=== PATIENT | male | born 1975 | race Caucasian/White ===

== ENCOUNTER 2016-08-01 02:55 | Emergency (ER) | payer OTHER, BC ==
[2016-08-01] MEDS ORDERED: KETOROLAC 30 MG/ML VIAL (J1885) As Ordered ONE (04:15)
[2016-08-01] MEDS ORDERED: GASTROGRAFIN SOLUTION 30ML (Q9963) As Ordered ONE (04:35)
--- NOTE | 2016-08-01 07:10 | REPUSA ---
CLINICAL HISTORY: Abdominal pain. TECHNIQUE: Multiple axial, sagittal and coronal CT images were obtained through the abdomen and pelvi s without administration of IV contrast material. Patient ingested oral contrast. COMMENTS: The liver is mildly enlarged with decreased attenuation without mass or defect. There is no intra or extrahepatic biliary ductal dilatation. The spleen is normal. The gallbladder is within normal limits . The pancreas is of normal contour and attenuation characteristics. There is no evidence of adrenal mass. The kidneys are normal in size, shape and configuration. No renal or ureteral calculi are identified. There is no hydroureter or hydronephrosis. There is no evidence for appendicitis. There is no bowel wall thickening. No evidence for small or la rge bowel obstruction. There is no evidence of abdominal ascites or lymphadenopathy. There is no evidence of intrinsic or extrinsic bladder mass. Small fat-containing left inguinal hernia without incarceration. Mildly enlarged left external iliac/ inguinal lymph nodes the largest measuring 1.2 cm. Surgical changes of the left inguinal canal. Images of the lung bases show no evidence of pleural or parenchymal mass. There are no pleural effusi ons. The bony structures are free of lytic or blastic lesions. IMPRESSION: Surgical changes of the left inguinal canal. Small fat containing left inguinal hernia without incarceration. Mildly enlarged left external iliac/left inguinal lymph nodes. Thank you for your kind referral of this patient.
--- NOTE | 2016-08-01 07:30 | EDDOCDS ---
Nurse's Notes [facility] Name: Víctor Brasher Age: 40 yrs Sex: Male : 1975 Arrival Date: 08/01/2016 Time: 02:55 Bed 7 Private MD: Diagnosis: Inguinal hernia-left Presentation: 08/01 02:59 Presenting complaint: Patient states: While boosting patient in bed, felt pulling and jmb burning in right inguinal area. Risk factors: the patient reports not having a history of previous torsion. Adult Sepsis Screening: The patient does not have new or worsening altered mentation. Patient's respiratory rate is less than 22. Systolic blood pressure is greater than 100. Patient has a qSOFA score of 0- Negative Sepsis Screen. Suicide/Homicide risk assessment- the patient denies having any suicidal and/or homicidal ideations and does not present with any other emotional, behavioral or mental health complaints. Status: Patient is not a line service technician or dependent. Transition of care: patient was not received from another setting of care. 02:59 Acuity: ELI Level 3 b 02:59 Method Of Arrival: Walkin/Carried/Asstd jmb Triage Assessment: 03:02 General: Appears in no apparent distress, Behavior is appropriate for age, cooperative. b Pain: Location: pelvis Pain currently is 5 out of 10 on a pain scale. Pt Declines HIV testing. Neurological: Level of Consciousness is awake, alert, obeys commands, Oriented to person, place, time, Speech is normal. Respiratory: Airway is patent Respiratory effort is even, Respiratory pattern is regular. GI: Abdomen is non- distended. Derm: Skin is pink, warm & dry. Musculoskeletal: Range of motion intact in all extremities. Historical: - Home Meds: 1. olmesartan-hydrochlorothiazide 20-12.5 mg oral tab 1 tab once daily 2. Zyrtec 5 mg Oral chew 1 tab once daily 3. fortesta 40 unit daily - PMHx: Seasonal Allergies; Hypertension; - PSHx: Hernia repair; Tonsillectomy; Adenoidectomy; Appendectomy; - Social history: Smoking status: Patient states was never smoker of tobacco. No barriers to communication noted, The patient speaks fluent Maori, Speaks appropriately for age. - Family history: Not pertinent. - : The pt / caregiver states he / she is not on anticoagulants. Home medication list is obtained from the patient. - Exposure Risk Screening:: None identified. Screenin:16 Screening information is obtained from the patient. Fall risk: No risks identified. ck1 Assistance ADL's: requires no assistance with activities of daily living. Abuse/DV Screen: The patient / caregiver reports he/she is: not in a situation that causes fear, pain or injury. Nutritional screening: No deficits noted. Advance Directives: Currently, there is no health care proxy. home support is adequate. Assessment: 03:18 General: Appears in no apparent distress, comfortable, Behavior is appropriate for age, nn1 cooperative. General: Patient reports history of bilateral inguinal hernias. 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 Pain: Location: left femoral area, left inguinal area and left iliac crest Pain currently is 5 out of 10 on a pain scale. Quality of pain is described as pressure, Pain began 1930. Neurological: Level of Consciousness is awake, alert, obeys commands, Oriented to person, place, time. Cardiovascular: Capillary refill < 3 seconds. Respiratory: Airway is patent Respiratory effort is even, unlabored, Respiratory pattern is regular, symmetrical. GI: Abdomen is flat, non- distended Bowel sounds present X 4 quads. Abd is soft X 4 quads Abd is tender to palpation X 4 quads. Patient reports pressure diffusely around abdomen. Derm: Skin is pink, warm & dry. 04:43 Reassessment: Patient appears in no apparent distress at this time. General: Patient nn1 has fluids infusing per orders, patient drinking oral contrast at this time. . 05:37 General: Patient finished contrast, no complaints at this time.. Respiratory: Airway is nn1 patent Respiratory effort is even, unlabored, Respiratory pattern is regular, symmetrical. Derm: Skin is pink, warm & dry. 06:21 General: Patient to CT, patients gait is steady. In no distress at this time. . nn1 Neurological: Level of Consciousness is awake, alert, obeys commands. Derm: Skin is pink, warm & dry. 07:20 General: Appears in no apparent distress, comfortable, Behavior is appropriate for age, ck1 cooperative. Pain: Location: left inguinal area Pain currently is 6 out of 10 on a pain scale. Neurological: Level of Consciousness is awake, alert, obeys commands, Oriented to person, place, time. Respiratory: Respiratory effort is unlabored, Respiratory pattern is regular, symmetrical. GI: No deficits noted. Derm: Skin is pink, warm & dry. Vital Signs: 03:02 BP 150 / 87; Pulse 80; Resp 18; Temp 98.2(O); Pulse Ox 96% on R/A; Weight 100.7 kg (R); b Height 5 ft. 10 in. (177.80 cm) (R); Pain 5/10; 07:22 BP 123 / 81; Pulse 73; Resp 18; Temp 98.7(TE); Pulse Ox 94% on R/A; Pain 6/10; ck1 03:02 Body Mass Index 31.85 (100.70 kg, 177.80 cm) [facility] Vitals: 03:02 Log In Time: August 01, 2016 at 02:58. [facility] ED Course: 02:57 Patient visited by Delores Benítez Reg. hs2 02:57 Patient moved to Waiting hs2 03:00 Triage Initiated [facility] 03:07 Patient moved to [facility] 03:56 Robert Starr DO is Attending Physician. cs11 03:56 Patient visited by Robert Starr DO. cs11 04:39 [facility] Payment Agreement was scanned into [employer] and attached to record. pm4 04:42 Patient visited by Lula Terry RN. nn1 05:38 Patient visited by Lula Terry RN. nn1 06:24 Patient visited by Lula Terry RN. nn1 06:57 Sophia Godinez,RN is Primary Nurse. ck1 06:59 Attending Physician role handed off by Robert Starr DO sd1 06:59 Stephanie Carcamo MD is Attending Physician. sd1 07:15 Patient visited by Sophia Godinez,JEFFERSON. ck1 07:16 The patient / caregiver is instructed regarding the plan of care and ED course. ck1 07:20 Maintain field IV. Dressing intact. Site clean & dry. Gauge & site: 20 gauge in left ck1 hand. 07:22 No procedures done that require assistance. ck1 07:26 CT ABD & PELVIS: Oral Contrast Only Returned. EDMS 07:26 Discontinued lock intact, bleeding controlled, pressure dressing applied, No ck1 redness/swelling at site. Administered Medications: 04:25 Drug: NS 0.9% 1000 ml [sodium chloride 0.9 % intravenous solution] Route: IV; Rate: nn1 bolus; Site: left hand; 04:25 Drug: ketorolac 30 mg [ketorolac 30 mg/mL (1 mL) injection solution (1 mL)] Route: IVP; nn1 Site: left hand; 05:37 Drug: Diatrizoate Meglumine & Sodium 10 ml [diatrizoate meglumine and diat.sodium 66 nn1 %-10 % oral solution (10 mL)] Route: PO; Order Results: Radiology Order: CT ABD & PELVIS: Oral Contrast Only Test: CT ABD & PELVIS: Oral Contrast Only REASON FOR EXAMINATION: L inguinal incacerate hernia eval; ; CLINICAL HISTORY: Abdominal pain.; TECHNIQUE: Multiple axial, sagittal and coronal CT images were obtained through the abdomen and pelvi; s without administration of IV contrast material. Patient ingested oral contrast.; COMMENTS:; The liver is mildly enlarged with decreased attenuation without mass or defect. There is no intra or; extrahepatic biliary ductal dilatation. The spleen is normal. The gallbladder is within normal limits; . The pancreas is of normal contour and attenuation characteristics. There is no evidence of adrenal; mass.; The kidneys are normal in size, shape and configuration. No renal or ureteral calculi are identified.; There is no hydroureter or hydronephrosis.; There is no evidence for appendicitis. There is no bowel wall thickening. No evidence for small or la; rge bowel obstruction. There is no evidence of abdominal ascites or lymphadenopathy.; There is no evidence of intrinsic or extrinsic bladder mass.; Small fat-containing left inguinal hernia without incarceration. Mildly enlarged left external iliac/; inguinal lymph nodes the largest measuring 1.2 cm. Surgical changes of the left inguinal canal.; Images of the lung bases show no evidence of pleural or parenchymal mass. There are no pleural effusi; ons.; The bony structures are free of lytic or blastic lesions.; IMPRESSION:; Surgical changes of the left inguinal canal.; Small fat containing left inguinal hernia without incarceration.; Mildly enlarged left external iliac/left inguinal lymph nodes.; Thank you for your kind referral of this patient.; ; Outcome: 07:21 Discharge ordered by Provider. sd1 07:22 CT Study completed. ck1 07:27 Discharge Assessment: Patient awake, alert and oriented x 3. No cognitive and/or ck1 functional deficits noted. Patient verbalized understanding of disposition instructions. patient administered narcotics - no. The following High Risk Discharge criteria are identified: None. Discharged to home ambulatory. Condition: stable. Property :Personal belongings accompany Pt. 07:29 Discharge instructions given to patient, Instructed on discharge instructions, follow ck1 up and referral plans. medication usage, Demonstrated understanding of instructions, medications, Pt was receptive of discharge instructions/ teaching. Work note provided to patient. 07:29 Patient left the ED. ck1 Signatures: Dispatcher [employer] EDMS Stephanie Carcamo MD MD sd1 Sophia GodinezRN RN ck1 Robert Starr, DO cs11 Avila HandRN RN Lula Mcclain RN RN nn1 Delores Benítez, Reg Reg hs2 Christian Harrell, Reg Reg pm4 MANA
--- NOTE | 2016-08-01 07:30 | EDDOCDS ---
Physician Documentation [facility] Name: Víctor Brasher Age: 40 yrs Sex: Male : 1975 Arrival Date: 08/01/2016 Time: 02:55 Bed 7 Private MD: Disposition: 08/01/16 07:21 Discharged to Home/Self Care. Impression: Inguinal hernia - left. - Condition is Stable. - Discharge Instructions: Hernia, Hernia, [id number]. - Medication Reconciliation, Local Pharmacy Hours, Work Release Form - 1 day form. - Follow up: Private Physician; When: Dr. Colin - call to schedule appointment. - Problem is new. - Symptoms have improved. - Notes: scrotal support return for increased pain, hard firm mass, vomiting, worsening symptoms or other concerns Historical: - Home Meds: 1. olmesartan-hydrochlorothiazide 20-12.5 mg oral tab 1 tab once daily 2. Zyrtec 5 mg Oral chew 1 tab once daily 3. fortesta 40 unit daily - PMHx: Seasonal Allergies; Hypertension; - PSHx: Hernia repair; Tonsillectomy; Adenoidectomy; Appendectomy; - Social history: Smoking status: Patient states was never smoker of tobacco. No barriers to communication noted, The patient speaks fluent [place], Speaks appropriately for age. - Family history: Not pertinent. - : The pt / caregiver states he / she is not on anticoagulants. Home medication list is obtained from the patient. - Exposure Risk Screening:: None identified. Vital Signs: 08/01 03:02 BP 150 / 87; Pulse 80; Resp 18; Temp 98.2(O); Pulse Ox 96% on R/A; Weight 100.7 kg / jmb 222.01 lbs (R); Height 5 ft. 10 in. (177.80 cm) (R); Pain 5/10; 07:22 BP 123 / 81; Pulse 73; Resp 18; Temp 98.7(TE); Pulse Ox 94% on R/A; Pain 6/10; ck1 03:02 Body Mass Index 31.85 (100.70 kg, 177.80 cm) jmb MDM: 04:12 IV Saline Lock ordered. cs11 04:12 NS 0.9% 1000 ml IV at bolus once ordered. cs11 04:12 ketorolac 30 mg IVP once ordered. cs11 04:12 CT ABD & PELVIS: Oral Contrast Only Ordered. EDMS 04:17 Financial registration complete. pm4 04:39 [facility] Payment Agreement was scanned into [employer] and attached to record. pm4 04:42 Diatrizoate Meglumine & Sodium Liquid 10 ml PO once; mix in 290cc of water; 1st cup \T\ nn1 0445, 2nd cup \T\ 0515 ordered. Administered Medications: 04:25 Drug: NS 0.9% 1000 ml [sodium chloride 0.9 % intravenous solution] Route: IV; Rate: nn1 bolus; Site: left hand; 04:25 Drug: ketorolac 30 mg [ketorolac 30 mg/mL (1 mL) injection solution (1 mL)] Route: IVP; nn1 Site: left hand; 05:37 Drug: Diatrizoate Meglumine & Sodium 10 ml [diatrizoate meglumine and diat.sodium 66 nn1 %-10 % oral solution (10 mL)] Route: PO; Signatures: Dispatcher [employer] EDRI Stephanie Carcamo MD MD sd1 Sophia GodinezRN RN ck1 Robert Starr, DO cs11 Avila HandRN RN Lula McclainRN RN nn1 Christian Harrell, Reg Reg pm4 The chart was reviewed and I authenticate all verbal orders and agree with the evaluation and treatment provided.Attachments: 04:39 [facility] Payment Agreement pm4 MTDD
--- NOTE | 2016-08-03 08:31 | EDDOCDS ---
Physician Documentation [facility] Name: Víctor Brasher Age: 40 yrs Sex: Male : 1975 Arrival Date: 08/01/2016 Time: 02:55 Bed 7 Private MD: Disposition: 08/01/16 07:21 Discharged to Home/Self Care. Impression: Inguinal hernia - left. - Condition is Stable. - Discharge Instructions: Hernia, Hernia, [id number]. - Medication Reconciliation, Local Pharmacy Hours, Work Release Form - 1 day form. - Follow up: Private Physician; When: Dr. Colin - call to schedule appointment. - Problem is new. - Symptoms have improved. - Notes: scrotal support return for increased pain, hard firm mass, vomiting, worsening symptoms or other concerns Historical: - Home Meds: 1. olmesartan-hydrochlorothiazide 20-12.5 mg oral tab 1 tab once daily 2. Zyrtec 5 mg Oral chew 1 tab once daily 3. fortesta 40 unit daily - PMHx: Seasonal Allergies; Hypertension; - PSHx: Hernia repair; Tonsillectomy; Adenoidectomy; Appendectomy; - Social history: Smoking status: Patient states was never smoker of tobacco. No barriers to communication noted, The patient speaks fluent Cameroonian, Speaks appropriately for age. - Family history: Not pertinent. - : The pt / caregiver states he / she is not on anticoagulants. Home medication list is obtained from the patient. - Exposure Risk Screening:: None identified. Vital Signs: 08/01 03:02 BP 150 / 87; Pulse 80; Resp 18; Temp 98.2(O); Pulse Ox 96% on R/A; Weight 100.7 kg / jmb 222.01 lbs (R); Height 5 ft. 10 in. (177.80 cm) (R); Pain 5/10; 07:22 BP 123 / 81; Pulse 73; Resp 18; Temp 98.7(TE); Pulse Ox 94% on R/A; Pain 6/10; ck1 03:02 Body Mass Index 31.85 (100.70 kg, 177.80 cm) jmb MDM: 04:12 IV Saline Lock ordered. cs11 04:12 NS 0.9% 1000 ml IV at bolus once ordered. cs11 04:12 ketorolac 30 mg IVP once ordered. cs11 04:12 CT ABD & PELVIS: Oral Contrast Only Ordered. EDMS 04:17 Financial registration complete. pm4 04:39 [facility] [place] [facility] Payment Agreement was scanned into [employer] and attached to record. pm4 04:42 Diatrizoate Meglumine & Sodium Liquid 10 ml PO once; mix in 290cc of water; 1st cup \T\ nn1 0445, 2nd cup \T\ 0515 ordered. 07:39 T-Sheet-- Draft Copy was scanned into [employer] and attached to record. [facility] 10:17 Radiology Report was scanned into [employer] and attached to record. gb Administered Medications: 04:25 Drug: NS 0.9% 1000 ml [sodium chloride 0.9 % intravenous solution] Route: IV; Rate: nn1 bolus; Site: left hand; 04:25 Drug: ketorolac 30 mg [ketorolac 30 mg/mL (1 mL) injection solution (1 mL)] Route: IVP; nn1 Site: left hand; 05:37 Drug: Diatrizoate Meglumine & Sodium 10 ml [diatrizoate meglumine and diat.sodium 66 nn1 %-10 % oral solution (10 mL)] Route: PO; Signatures: Dispatcher [employer] EDMO Stephanie Carcamo MD MD sd1 Candy Brown, Reg Reg gb Sophia Godinez,RN RN ck1 Robert Starr, DO cs11 Avila HandRN RN Lula McclainRN RN nn1 Stephanie Santizo [facility] Christian Harrell, Reg Reg pm4 The chart was reviewed and I authenticate all verbal orders and agree with the evaluation and treatment provided.Attachments: 04:39 [facility] [facility] Payment Agreement pm4 07:39 T-Sheet-- Draft Copy [facility] Chart Complete MTDD
--- NOTE | 2016-08-03 08:31 | EDDOCDS ---
Physician Documentation [facility] Name: Víctor Brasher Age: 40 yrs Sex: Male : 1975 Arrival Date: 08/01/2016 Time: 02:55 Bed 7 Private MD: Disposition: 08/01/16 07:21 Discharged to Home/Self Care. Impression: Inguinal hernia - left. - Condition is Stable. - Discharge Instructions: Hernia, Hernia, [id number]. - Medication Reconciliation, Local Pharmacy Hours, Work Release Form - 1 day form. - Follow up: Private Physician; When: Dr. Colin - call to schedule appointment. - Problem is new. - Symptoms have improved. - Notes: scrotal support return for increased pain, hard firm mass, vomiting, worsening symptoms or other concerns Historical: - Home Meds: 1. olmesartan-hydrochlorothiazide 20-12.5 mg oral tab 1 tab once daily 2. Zyrtec 5 mg Oral chew 1 tab once daily 3. fortesta 40 unit daily - PMHx: Seasonal Allergies; Hypertension; - PSHx: Hernia repair; Tonsillectomy; Adenoidectomy; Appendectomy; - Social history: Smoking status: Patient states was never smoker of tobacco. No barriers to communication noted, The patient speaks fluent Indian, Speaks appropriately for age. - Family history: Not pertinent. - : The pt / caregiver states he / she is not on anticoagulants. Home medication list is obtained from the patient. - Exposure Risk Screening:: None identified. Vital Signs: 08/01 03:02 BP 150 / 87; Pulse 80; Resp 18; Temp 98.2(O); Pulse Ox 96% on R/A; Weight 100.7 kg / jmb 222.01 lbs (R); Height 5 ft. 10 in. (177.80 cm) (R); Pain 5/10; 07:22 BP 123 / 81; Pulse 73; Resp 18; Temp 98.7(TE); Pulse Ox 94% on R/A; Pain 6/10; ck1 03:02 Body Mass Index 31.85 (100.70 kg, 177.80 cm) jmb MDM: 04:12 IV Saline Lock ordered. cs11 04:12 NS 0.9% 1000 ml IV at bolus once ordered. cs11 04:12 ketorolac 30 mg IVP once ordered. cs11 04:12 CT ABD & PELVIS: Oral Contrast Only Ordered. EDMS 04:17 Financial registration complete. pm4 04:39 [facility] [place] Agreement was scanned into [employer] and attached to record. pm4 04:42 Diatrizoate Meglumine & Sodium Liquid 10 ml PO once; mix in 290cc of water; 1st cup \T\ nn1 0445, 2nd cup \T\ 0515 ordered. 07:39 T-Sheet-- Draft Copy was scanned into [employer] and attached to record. [facility] 10:17 Radiology Report was scanned into [employer] and attached to record. gb Administered Medications: 04:25 Drug: NS 0.9% 1000 ml [sodium chloride 0.9 % intravenous solution] Route: IV; Rate: nn1 bolus; Site: left hand; 04:25 Drug: ketorolac 30 mg [ketorolac 30 mg/mL (1 mL) injection solution (1 mL)] Route: IVP; nn1 Site: left hand; 05:37 Drug: Diatrizoate Meglumine & Sodium 10 ml [diatrizoate meglumine and diat.sodium 66 nn1 %-10 % oral solution (10 mL)] Route: PO; Signatures: Dispatcher [employer] EDME Stephanie Carcamo MD MD sd1 Candy Brown, Reg Reg gb Sophia Godinez,RN RN ck1 Robert Starr, DO cs11 Avila HandRN RN Lula McclainRN RN nn1 Stephanie Santizo [facility] Christian Harrell, Reg Reg pm4 The chart was reviewed and I authenticate all verbal orders and agree with the evaluation and treatment provided.Attachments: 04:39 [facility] [place] Agreement pm4 07:39 T-Sheet-- Draft Copy [facility] Chart Complete MTDD
--- NOTE | 2016-08-03 08:31 | EDDOCDS ---
Nurse's Notes [facility] Name: Víctor Brasher Age: 40 yrs Sex: Male : 1975 Arrival Date: 08/01/2016 Time: 02:55 Bed 7 Private MD: Diagnosis: Inguinal hernia-left Presentation: 08/01 02:59 Presenting complaint: Patient states: While boosting patient in bed, felt pulling and jmb burning in right inguinal area. Risk factors: the patient reports not having a history of previous torsion. Adult Sepsis Screening: The patient does not have new or worsening altered mentation. Patient's respiratory rate is less than 22. Systolic blood pressure is greater than 100. Patient has a qSOFA score of 0- Negative Sepsis Screen. Suicide/Homicide risk assessment- the patient denies having any suicidal and/or homicidal ideations and does not present with any other emotional, behavioral or mental health complaints. 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 Transition of care: patient was not received from another setting of care. 02:59 Acuity: ELI Level 3 b 02:59 Method Of Arrival: Walkin/Carried/Asstd jmb Triage Assessment: 03:02 General: Appears in no apparent distress, Behavior is appropriate for age, cooperative. b Pain: Location: pelvis Pain currently is 5 out of 10 on a pain scale. Pt Declines HIV testing. Neurological: Level of Consciousness is awake, alert, obeys commands, Oriented to person, place, time, Speech is normal. Respiratory: Airway is patent Respiratory effort is even, Respiratory pattern is regular. GI: Abdomen is non- distended. Derm: Skin is pink, warm & dry. Musculoskeletal: Range of motion intact in all extremities. Historical: - Home Meds: 1. olmesartan-hydrochlorothiazide 20-12.5 mg oral tab 1 tab once daily 2. Zyrtec 5 mg Oral chew 1 tab once daily 3. fortesta 40 unit daily - PMHx: Seasonal Allergies; Hypertension; - PSHx: Hernia repair; Tonsillectomy; Adenoidectomy; Appendectomy; - Social history: Smoking status: Patient states was never smoker of tobacco. No barriers to communication noted, The patient speaks fluent Yi, Speaks appropriately for age. - Family history: Not pertinent. - : The pt / caregiver states he / she is not on anticoagulants. Home medication list is obtained from the patient. - Exposure Risk Screening:: None identified. Screenin:16 Screening information is obtained from the patient. Fall risk: No risks identified. ck1 Assistance ADL's: requires no assistance with activities of daily living. Abuse/DV Screen: The patient / caregiver reports he/she is: not in a situation that causes fear, pain or injury. Nutritional screening: No deficits noted. Advance Directives: Currently, there is no health care proxy. home support is adequate. Assessment: 03:18 General: Appears in no apparent distress, comfortable, Behavior is appropriate for age, nn1 cooperative. General: Patient reports history of bilateral inguinal hernias. 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 Pain: Location: left femoral area, left inguinal area and left iliac crest Pain currently is 5 out of 10 on a pain scale. Quality of pain is described as pressure, Pain began 1930. Neurological: Level of Consciousness is awake, alert, obeys commands, Oriented to person, place, time. Cardiovascular: Capillary refill < 3 seconds. Respiratory: Airway is patent Respiratory effort is even, unlabored, Respiratory pattern is regular, symmetrical. GI: Abdomen is flat, non- distended Bowel sounds present X 4 quads. Abd is soft X 4 quads Abd is tender to palpation X 4 quads. Patient reports pressure diffusely around abdomen. Derm: Skin is pink, warm & dry. 04:43 Reassessment: Patient appears in no apparent distress at this time. General: Patient nn1 has fluids infusing per orders, patient drinking oral contrast at this time. . 05:37 General: Patient finished contrast, no complaints at this time.. Respiratory: Airway is nn1 patent Respiratory effort is even, unlabored, Respiratory pattern is regular, symmetrical. Derm: Skin is pink, warm & dry. 06:21 General: Patient to CT, patients gait is steady. In no distress at this time. . nn1 Neurological: Level of Consciousness is awake, alert, obeys commands. Derm: Skin is pink, warm & dry. 07:20 General: Appears in no apparent distress, comfortable, Behavior is appropriate for age, ck1 cooperative. Pain: Location: left inguinal area Pain currently is 6 out of 10 on a pain scale. Neurological: Level of Consciousness is awake, alert, obeys commands, Oriented to person, place, time. Respiratory: Respiratory effort is unlabored, Respiratory pattern is regular, symmetrical. GI: No deficits noted. Derm: Skin is pink, warm & dry. Vital Signs: 03:02 BP 150 / 87; Pulse 80; Resp 18; Temp 98.2(O); Pulse Ox 96% on R/A; Weight 100.7 kg (R); b Height 5 ft. 10 in. (177.80 cm) (R); Pain 5/10; 07:22 BP 123 / 81; Pulse 73; Resp 18; Temp 98.7(TE); Pulse Ox 94% on R/A; Pain 6/10; ck1 03:02 Body Mass Index 31.85 (100.70 kg, 177.80 cm) [facility] Vitals: 03:02 Log In Time: August 01, 2016 at 02:58. [facility] ED Course: 02:57 Patient visited by Delores Benítez Reg. hs2 02:57 Patient moved to Waiting hs2 03:00 Triage Initiated [facility] 03:07 Patient moved to [facility] 03:56 Robert Starr DO is Attending Physician. cs11 03:56 Patient visited by Robert Starr DO. cs11 04:39 [facility] Payment Agreement was scanned into [employer] and attached to record. pm4 04:42 Patient visited by Lula Terry RN. nn1 05:38 Patient visited by Lula Terry RN. nn1 06:24 Patient visited by Lula Terry RN. nn1 06:57 Sophia Godinez,RN is Primary Nurse. ck1 06:59 Attending Physician role handed off by Robert Starr DO sd1 06:59 Stephanie Carcamo MD is Attending Physician. sd1 07:15 Patient visited by Sophia Godinez,JEFFERSON. ck1 07:16 The patient / caregiver is instructed regarding the plan of care and ED course. ck1 07:20 Maintain field IV. Dressing intact. Site clean & dry. Gauge & site: 20 gauge in left ck1 hand. 07:22 No procedures done that require assistance. ck1 07:26 CT ABD & PELVIS: Oral Contrast Only Returned. EDMS 07:26 Discontinued lock intact, bleeding controlled, pressure dressing applied, No ck1 redness/swelling at site. 07:39 T-Sheet-- Draft Copy was scanned into [employer] and attached to record. [facility] 10:17 Radiology Report was scanned into [employer] and attached to record. gb Administered Medications: 04:25 Drug: NS 0.9% 1000 ml [sodium chloride 0.9 % intravenous solution] Route: IV; Rate: nn1 bolus; Site: left hand; 04:25 Drug: ketorolac 30 mg [ketorolac 30 mg/mL (1 mL) injection solution (1 mL)] Route: IVP; nn1 Site: left hand; 05:37 Drug: Diatrizoate Meglumine & Sodium 10 ml [diatrizoate meglumine and diat.sodium 66 nn1 %-10 % oral solution (10 mL)] Route: PO; Order Results: Radiology Order: CT ABD & PELVIS: Oral Contrast Only Test: CT ABD & PELVIS: Oral Contrast Only REASON FOR EXAMINATION: L inguinal incacerate hernia eval; ; CLINICAL HISTORY: Abdominal pain.; TECHNIQUE: Multiple axial, sagittal and coronal CT images were obtained through the abdomen and pelvi; s without administration of IV contrast material. Patient ingested oral contrast.; COMMENTS:; The liver is mildly enlarged with decreased attenuation without mass or defect. There is no intra or; extrahepatic biliary ductal dilatation. The spleen is normal. The gallbladder is within normal limits; . The pancreas is of normal contour and attenuation characteristics. There is no evidence of adrenal; mass.; The kidneys are normal in size, shape and configuration. No renal or ureteral calculi are identified.; There is no hydroureter or hydronephrosis.; There is no evidence for appendicitis. There is no bowel wall thickening. No evidence for small or la; rge bowel obstruction. There is no evidence of abdominal ascites or lymphadenopathy.; There is no evidence of intrinsic or extrinsic bladder mass.; Small fat-containing left inguinal hernia without incarceration. Mildly enlarged left external iliac/; inguinal lymph nodes the largest measuring 1.2 cm. Surgical changes of the left inguinal canal.; Images of the lung bases show no evidence of pleural or parenchymal mass. There are no pleural effusi; ons.; The bony structures are free of lytic or blastic lesions.; IMPRESSION:; Surgical changes of the left inguinal canal.; Small fat containing left inguinal hernia without incarceration.; Mildly enlarged left external iliac/left inguinal lymph nodes.; Thank you for your kind referral of this patient.; ; Outcome: 07:21 Discharge ordered by Provider. sd1 07:22 CT Study completed. ck1 07:27 Discharge Assessment: Patient awake, alert and oriented x 3. No cognitive and/or ck1 functional deficits noted. Patient verbalized understanding of disposition instructions. patient administered narcotics - no. The following High Risk Discharge criteria are identified: None. Discharged to home ambulatory. Condition: stable. Property :Personal belongings accompany Pt. 07:29 Discharge instructions given to patient, Instructed on discharge instructions, follow ck1 up and referral plans. medication usage, Demonstrated understanding of instructions, medications, Pt was receptive of discharge instructions/ teaching. Work note provided to patient. 07:29 Patient left the ED. ck1 Signatures: Dispatcher [employer] EDMS Stephanie Carcamo MD MD sd1 Candy Brown, Reg Reg gb Sophia GodinezRN RN ck1 Robert Starr, DO cs11 Avila HandRN RN Lula McclainRN RN nn1 Delores Benítez, Reg Reg hs2 Stephanie Santizo Paul, Reg Reg pm4 Chart Complete MTDD
== END 2016-08-01 07:29 | disposition home or self-care (01) ==
LOC: M ED 02:55
DX: K40.90 Unilateral inguinal hernia, without obstruction or gangrene, not specified as recurrent (principal); R10.30 Lower abdominal pain, unspecified; I10 Essential (primary) hypertension; J30.9 Allergic rhinitis, unspecified; Z90.89 Acquired absence of other organs; Z79.899 Other long term (current) drug therapy
CPT/HCPCS: 74176; 96374; 99284; J1885; Q9963

== ENCOUNTER 2016-08-04 10:08 | Emergency (ER) | payer BC, OTHER ==
--- NOTE | 2016-08-04 11:24 | REP ---
BILATERAL INGUINAL SOFT-TISSUE ULTRASOUND: HISTORY: Bilateral inguinal pain. Question hernia. Painful pop sensation. FINDINGS: Bilateral inguinal canal sonography is performed. No abnormalities noted on the right. On the left the inguinal canal appears dilated with Valsalva to 5 mm transmitting a small amount of intra-abdominal fat with Valsalva. Reduces with rest. No abnormal fluid collection is seen. IMPRESSION: Findings consistent with a small left inguinal hernia transmitting abdominal fat. Correlation with clinical exam suggested. Signed by Edgar Eugene MD 08/04/2016 02:32 P
[2016-08-04 11:45] LABS: BASO # 0.1 K/mm3 (0.0-0.2); BASO % 1.5 % (0.0-1.0); EOS # 0.2 K/mm3 (0.0-0.50); EOS % 2.4 % (0.0-3.0); LARGE UNSTAINED CELL # 0.2 K/mm3 (0.0-0.4); LARGE UNSTAINED CELL % 2.1 % (0.0-4.0); LYMPH % 25.6 % (24.0-44.0); MEAN CORPUSCULAR HEMOGLOBIN 31.9 pg (27.0-33.0); MEAN CORPUSCULAR VOLUME 93.8 fl (80.0-96.0); MONO # 0.5 K/mm3 (0.0-0.8); MONO % 7.2 % (0.0-5.0); NEUTROPHILS # 4.3 K/mm3 (1.8-7.7); NEUTROPHILS % 61.3 % (36.0-66.0); PLATELET COUNT, AUTOMATED 249 k/mm3 (150-450); RED CELL DISTRIBUTION WIDTH 12.8 % (11.5-14.5); WHITE BLOOD COUNT 7.1 K/mm3 (4.0-10.0)
--- NOTE | 2016-08-04 12:52 | EDDOCDS ---
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 seen here had ct and us and dx with hernia. diarrhea for past few days and now firming up. patter more frequently. pt got in touch with surgeon and cant see until next week. pain is persisting. Risk factors: the patient reports not having a history of previous torsion. Adult Sepsis Screening: The patient does not have new or worsening altered mentation. Patient's respiratory rate is less than 22. Systolic blood pressure is greater than 100. Patient has a qSOFA score of 0- Negative Sepsis Screen. Suicide/Homicide risk assessment- the patient denies having any suicidal and/or homicidal ideations and does not present with any other emotional, behavioral or mental health complaints. 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 Transition of care: patient was not received from another setting of care. 10:19 Acuity: ELI Level 3 srm 10:19 Method Of Arrival: Walkin/Carried/Asstd srm 10:22 Presenting complaint: Patient states: felt a bulge in right groin area. srm Triage Assessment: 10:22 General: Appears in no apparent distress, Behavior is appropriate for age, cooperative. srm Pain: Pain currently is 4 out of 10 on a pain scale. At worst was 6 out of 10 on a pain scale. HIV screening NA for this visit Offered previously. GI: Reports abdominal and groin pain. Historical: - Allergies: no known allergies; - Home Meds: 1. olmesartan-hydrochlorothiazide 20-12.5 mg oral tab 1 tab once daily 2. fortesta 40 unit daily 3. Motrin 600 mg Oral tab 1 tab as needed (Last dose: 08/04/2016 04:00) 4. Zyrtec 10 mg oral cap daily - PMHx: Seasonal Allergies; Hypertension; - PSHx: Hernia repair; Tonsillectomy; Adenoidectomy; Appendectomy; - Social history: Smoking status: Patient states was never smoker of tobacco. No barriers to communication noted, The patient speaks fluent Maltese, Speaks appropriately for age. - Family history: No immediate family members are acutely ill. - : The pt / caregiver states he / she is not on anticoagulants. Home medication list is obtained from the patient. - Exposure Risk Screening:: None identified. Screenin:48 Screening information is obtained from the patient. Fall risk: No risks identified. mb9 Assistance ADL's: requires no assistance with activities of daily living. Abuse/DV Screen: The patient / caregiver reports he/she is: not in a situation that causes fear, pain or injury. Nutritional screening: No deficits noted. Advance Directives: There is no active DNR order. home support is adequate. Assessment: 12:48 General: Appears in no apparent distress, Behavior is appropriate for age, cooperative. mb9 Respiratory: Airway is patent Respiratory effort is even, unlabored. GI: Abdomen is flat, non- distended Reports diarrhea. Vital Signs: 10:10 BP 137 / 86; Pulse 91; Resp 16; Temp 97.9(O); Pulse Ox 96% ; Weight 100.7 kg; Height 5 cmb ft. 10 in. (177.80 cm); Pain 6/10; 12:20 BP 130 / 79; Pulse 75; Resp 18; Temp 98.4(TE); Pulse Ox 97% on R/A; Pain 6/10; mdr 10:10 Body Mass Index 31.85 (100.70 kg, 177.80 cm) cmb Vitals: 10:10 Log In Time: August 04, 2016 at 10:08. cmb ED Course: 10:09 Patient visited by Inés Edwards. cmb 10:09 Kiki Anne is Private Physician. cmb 10:09 Patient moved to Waiting cmb 10:11 Patient moved to Pre RCE cmb 10:21 Triage Initiated srm 10:23 Patient moved to Triage 3 srm 10:24 [facility] ar2 10:24 David Banks MD is Attending Physician. ar2 10:27 Patient visited by Dwight Grey PA-C. ar2 10:45 Patient moved to PR1 / 25 srm 10:45 Patient moved to Ultrasound srm 11:23 Lactic Acid (Oliveira tube on ice) Sent. mdr 11:23 CBC with Diff Sent. mdr 11:27 Patient name changed from Víctor\S\A\S\Brasher\S\ to Víctor\S\Emery\S\Brasher. EDMS 11:28 [facility] Payment Agreement was scanned into [employer] and attached to record. lg 11:30 Patient moved to PR1 / 25 mb9 11:34 Patient moved to TR1 mdr 11:45 ABD US: Limited Returned. EDMS 12:00 Patient moved to PR1 / 25 mdr 12:21 Patient visited by Jas Hernández PCA. mdr 12:36 Patient moved to TR8 mb9 12:42 T-Sheet-- Draft Copy was scanned into [employer] and attached to record. gb 12:48 The patient / caregiver is instructed regarding the plan of care and ED course. mb9 12:48 No IV's were initiated during this patient's visit. No procedures done that require mb9 assistance. Order Results: Lab Order: CBC with Diff; SPEC'M 08/04/16 11:23 Test: WHITE BLOOD COUNT; Value: 7.1; Range: 4.0-10.0; Units: K/mm3; Status: F Test: RED BLOOD COUNT; Value: 5.18; Range: 4.30-6.10; Units: M/mm3; Status: F Test: HEMOGLOBIN; Value: 16.5; Range: 14.0-18.0; Units: g/dl; Status: F Test: HEMATOCRIT; Value: 48.6; Range: 42.0-52.0; Units: %; Status: F Test: MEAN CORPUSCULAR VOLUME; Value: 93.8; Range: 80.0-96.0; Units: fl; Status: F Test: MEAN CORPUSCULAR HEMOGLOBIN; Value: 31.9; Range: 27.0-33.0; Units: pg; Status: F Test: MEAN CORPUSCULAR HGB CONC; Value: 34.0; Range: 32.0-36.5; Units: g/dl; Status: F Test: RED CELL DISTRIBUTION WIDTH; Value: 12.8; Range: 11.5-14.5; Units: %; Status: F Test: PLATELET COUNT, AUTOMATED; Value: 249; Range: 150-450; Units: k/mm3; Status: F Test: NEUTROPHILS %; Value: 61.3; Range: 36.0-66.0; Units: %; Status: F Test: LYMPH %; Value: 25.6; Range: 24.0-44.0; Units: %; Status: F Test: MONO %; Value: 7.2; Range: 0.0-5.0; Abnormal: Above high normal; Units: %; Status: F Test: EOS %; Value: 2.4; Range: 0.0-3.0; Units: %; Status: F Test: BASO %; Value: 1.5; Range: 0.0-1.0; Abnormal: Above high normal; Units: %; Status: F Test: LARGE UNSTAINED CELL %; Value: 2.1; Range: 0.0-4.0; Units: %; Status: F Test: NEUTROPHILS #; Value: 4.3; Range: 1.8-7.7; Units: K/mm3; Status: F Test: LYMPH #; Value: 2.0; Range: 1.5-4.5; Units: K/mm3; Status: F Test: MONO #; Value: 0.5; Range: 0.0-0.8; Units: K/mm3; Status: F Test: EOS #; Value: 0.2; Range: 0.0-0.50; Units: K/mm3; Status: F Test: BASO #; Value: 0.1; Range: 0.0-0.2; Units: K/mm3; Status: F Test: LARGE UNSTAINED CELL #; Value: 0.2; Range: 0.0-0.4; Units: K/mm3; Status: F Lab Order: Lactic Acid (Oliveira tube on ice); SPEC'M 08/04/16 11:23 Test: LACTIC ACID LEVEL, LACTATE; Value: 1.3; Range: 0.4-2.0; Units: MMOL/L; Status: F Radiology Order: ABD US: Limited Test: ABD US: Limited REASON FOR EXAMINATION: bilateral inguinal pain, ? hernia; BILATERAL INGUINAL SOFT-TISSUE ULTRASOUND:; ; HISTORY: Bilateral inguinal pain. Question hernia. Painful pop sensation.; ; FINDINGS: Bilateral inguinal canal sonography is performed. No abnormalities; noted on the right. On the left the inguinal canal appears dilated with Valsalva; to 5 mm transmitting a small amount of intra-abdominal fat with Valsalva.; Reduces with rest. No abnormal fluid collection is seen.; ; IMPRESSION:; Findings consistent with a small left inguinal hernia transmitting abdominal fat.; Correlation with clinical exam suggested.; ; ; ; ; Unreviewed; Outcome: 12:14 Discharge ordered by Provider. ar2 12:48 Discharge Assessment: patient administered narcotics - no. The following High Risk mb9 Discharge criteria are identified: None. Discharged to home ambulatory. Condition: good Condition: stable Condition: improved. Discharge instructions given to patient, Instructed on discharge instructions, follow up and referral plans. medication usage, Demonstrated understanding of instructions, medications, Pt was receptive of discharge instructions/ teaching. Work note provided to patient. Ultrasound Study completed. Property :Personal belongings accompany Pt. 12:51 Patient left the ED. [email or web address] Signatures: Dispatcher [employer] EDMS Corinne Lopes, RN RN srm Candy Brown, Reg Reg gb Marlene Reyes, Reg Reg lg Dwight Grey, PA-Anabella PA-C ar2 Inés Edwards Michael,JEFFERSON RN mb9 Jas Hernández, XENIA [employer] mdr MTDD
--- NOTE | 2016-08-04 12:52 | EDDOCDS ---
Physician Documentation [facility] Name: Víctor Brasher Age: 40 yrs Sex: Male : 1975 Arrival Date: 08/04/2016 Time: 10:08 Bed TR8 Private MD: Kiki Anne A Disposition: 08/04/16 12:14 Discharged to Home/Self Care. Impression: Unilateral inguinal hernia, without obstruction or gangrene - left fat containing, reducible. - Condition is Stable. - Discharge Instructions: Inguinal Hernia, Adult. - Medication Reconciliation, Local Pharmacy Hours, Work Release Form - 3 day form. - Follow up: Private Physician; When: As previously arranged; Reason: Recheck today's complaints, Continuance of care. Follow up: Emergency Department; When: As needed; Reason: severe pain, fevers, rectal bleeding, inability to move bowels. - Problem is an acute exacerbation. - Symptoms are unchanged. Historical: - Allergies: no known allergies; - Home Meds: 1. olmesartan-hydrochlorothiazide 20-12.5 mg oral tab 1 tab once daily 2. fortesta 40 unit daily 3. Motrin 600 mg Oral tab 1 tab as needed (Last dose: 08/04/2016 04:00) 4. Zyrtec 10 mg oral cap daily - PMHx: Seasonal Allergies; Hypertension; - PSHx: Hernia repair; Tonsillectomy; Adenoidectomy; Appendectomy; - Social history: Smoking status: Patient states was never smoker of tobacco. No barriers to communication noted, The patient speaks fluent Syriac, Speaks appropriately for age. - Family history: No immediate family members are acutely ill. - : The pt / caregiver states he / she is not on anticoagulants. Home medication list is obtained from the patient. - Exposure Risk Screening:: None identified. Vital Signs: 08/04 10:10 BP 137 / 86; Pulse 91; Resp 16; Temp 97.9(O); Pulse Ox 96% ; Weight 100.7 kg / 222.01 cmb lbs; Height 5 ft. 10 in. (177.80 cm); Pain 6/10; 12:20 BP 130 / 79; Pulse 75; Resp 18; Temp 98.4(TE); Pulse Ox 97% on R/A; Pain 6/10; mdr 10:10 Body Mass Index 31.85 (100.70 kg, 177.80 cm) cmb MDM: 10:30 Financial registration complete. lg 10:38 CBC with Diff Ordered. EDMS 10:38 Lactic Acid (Oliveira tube on ice) Ordered. EDMS 10:39 ABD US: Limited Ordered. EDMS 11:28 [facility] Payment Agreement was scanned into [employer] and attached to record. lg 12:09 CBC with Diff Reviewed. ar2 12:09 Lactic Acid (Oliveira tube on ice) Reviewed. ar2 12:09 ABD US: Limited Reviewed. ar2 12:42 T-Sheet-- Draft Copy was scanned into [employer] and attached to record. gb Signatures: Dispatcher [employer] EDMS Corinne Lopes, RN RN srm Candy Brown, Reg Reg gb Marlene Reyes, Reg Reg lg Dwight Grey, PA-C PA-C ar2 Salvador SequeiraRN RN mb9 The chart was reviewed and I authenticate all verbal orders and agree with the evaluation and treatment provided.Attachments: 11:28 [facility] Payment Agreement lg 12:42 T-Sheet-- Draft Copy gb MTDD
--- NOTE | 2016-08-06 13:52 | EDDOCDS ---
Physician Documentation [facility] Name: Víctor Brasher Age: 40 yrs Sex: Male : 1975 Arrival Date: 08/04/2016 Time: 10:08 Bed TR8 Private MD: Kiki Anne A Disposition: 08/04/16 12:14 Discharged to Home/Self Care. Impression: Unilateral inguinal hernia, without obstruction or gangrene - left fat containing, reducible. - Condition is Stable. - Discharge Instructions: Inguinal Hernia, Adult. - Medication Reconciliation, Local Pharmacy Hours, Work Release Form - 3 day form. - Follow up: Private Physician; When: As previously arranged; Reason: Recheck today's complaints, Continuance of care. Follow up: Emergency Department; When: As needed; Reason: severe pain, fevers, rectal bleeding, inability to move bowels. - Problem is an acute exacerbation. - Symptoms are unchanged. Historical: - Allergies: no known allergies; - Home Meds: 1. olmesartan-hydrochlorothiazide 20-12.5 mg oral tab 1 tab once daily 2. fortesta 40 unit daily 3. Motrin 600 mg Oral tab 1 tab as needed (Last dose: 08/04/2016 04:00) 4. Zyrtec 10 mg oral cap daily - PMHx: Seasonal Allergies; Hypertension; - PSHx: Hernia repair; Tonsillectomy; Adenoidectomy; Appendectomy; - Social history: Smoking status: Patient states was never smoker of tobacco. No barriers to communication noted, The patient speaks fluent Lithuanian, Speaks appropriately for age. - Family history: No immediate family members are acutely ill. - : The pt / caregiver states he / she is not on anticoagulants. Home medication list is obtained from the patient. - Exposure Risk Screening:: None identified. Vital Signs: 08/04 10:10 BP 137 / 86; Pulse 91; Resp 16; Temp 97.9(O); Pulse Ox 96% ; Weight 100.7 kg / 222.01 cmb lbs; Height 5 ft. 10 in. (177.80 cm); Pain 6/10; 12:20 BP 130 / 79; Pulse 75; Resp 18; Temp 98.4(TE); Pulse Ox 97% on R/A; Pain 6/10; mdr 10:10 Body Mass Index 31.85 (100.70 kg, 177.80 cm) cmb MDM: 10:30 Financial registration complete. lg 10:38 CBC with Diff Ordered. EDMS 10:38 Lactic Acid (Oliveira tube on ice) Ordered. EDMS 10:39 ABD US: Limited Ordered. EDMS 11:28 [facility] Payment Agreement was scanned into [employer] and attached to record. lg 12:09 CBC with Diff Reviewed. ar2 12:09 Lactic Acid (Oliveira tube on ice) Reviewed. ar2 12:09 ABD US: Limited Reviewed. ar2 12:42 T-Sheet-- Draft Copy was scanned into [employer] and attached to record. gb 08/05 11:30 Radiology Report was scanned into [employer] and attached to record. gb Signatures: Dispatcher [employer] EDCorinne Farias, RN RN [facility] Candy Brown, Reg Reg gb Marlene Reyes, Reg Reg lg Dwight Grey, AB PARand ar2 Salvador Sequeira RN RN mb9 The chart was reviewed and I authenticate all verbal orders and agree with the evaluation and treatment provided.Attachments: 08/04 11:28 [facility] Payment Agreement lg 12:42 T-Sheet-- Draft Copy gb Chart Complete MTDD
--- NOTE | 2016-08-06 13:52 | EDDOCDS ---
Physician Documentation [facility] Name: Víctor Brasher Age: 40 yrs Sex: Male : 1975 Arrival Date: 08/04/2016 Time: 10:08 Bed TR8 Private MD: Kiki Anne A Disposition: 08/04/16 12:14 Discharged to Home/Self Care. Impression: Unilateral inguinal hernia, without obstruction or gangrene - left fat containing, reducible. - Condition is Stable. - Discharge Instructions: Inguinal Hernia, Adult. - Medication Reconciliation, Local Pharmacy Hours, Work Release Form - 3 day form. - Follow up: Private Physician; When: As previously arranged; Reason: Recheck today's complaints, Continuance of care. Follow up: Emergency Department; When: As needed; Reason: severe pain, fevers, rectal bleeding, inability to move bowels. - Problem is an acute exacerbation. - Symptoms are unchanged. Historical: - Allergies: no known allergies; - Home Meds: 1. olmesartan-hydrochlorothiazide 20-12.5 mg oral tab 1 tab once daily 2. fortesta 40 unit daily 3. Motrin 600 mg Oral tab 1 tab as needed (Last dose: 08/04/2016 04:00) 4. Zyrtec 10 mg oral cap daily - PMHx: Seasonal Allergies; Hypertension; - PSHx: Hernia repair; Tonsillectomy; Adenoidectomy; Appendectomy; - Social history: Smoking status: Patient states was never smoker of tobacco. No barriers to communication noted, The patient speaks fluent Maltese, Speaks appropriately for age. - Family history: No immediate family members are acutely ill. - : The pt / caregiver states he / she is not on anticoagulants. Home medication list is obtained from the patient. - Exposure Risk Screening:: None identified. Vital Signs: 08/04 10:10 BP 137 / 86; Pulse 91; Resp 16; Temp 97.9(O); Pulse Ox 96% ; Weight 100.7 kg / 222.01 cmb lbs; Height 5 ft. 10 in. (177.80 cm); Pain 6/10; 12:20 BP 130 / 79; Pulse 75; Resp 18; Temp 98.4(TE); Pulse Ox 97% on R/A; Pain 6/10; mdr 10:10 Body Mass Index 31.85 (100.70 kg, 177.80 cm) cmb MDM: 10:30 Financial registration complete. lg 10:38 CBC with Diff Ordered. EDMS 10:38 Lactic Acid (Oliveira tube on ice) Ordered. EDMS 10:39 ABD US: Limited Ordered. EDMS 11:28 [facility] Payment Agreement was scanned into [employer] and attached to record. lg 12:09 CBC with Diff Reviewed. ar2 12:09 Lactic Acid (Oliveira tube on ice) Reviewed. ar2 12:09 ABD US: Limited Reviewed. ar2 12:42 T-Sheet-- Draft Copy was scanned into [employer] and attached to record. gb 08/05 11:30 Radiology Report was scanned into [employer] and attached to record. gb Signatures: Dispatcher [employer] EDCorinne Farias, RN RN [facility] Candy Brown, Reg Reg gb Marlene Reyes, Reg Reg lg Dwight Grey, AB PARand ar2 Salvador Sequeira RN RN mb9 The chart was reviewed and I authenticate all verbal orders and agree with the evaluation and treatment provided.Attachments: 08/04 11:28 [facility] Payment Agreement lg 12:42 T-Sheet-- Draft Copy gb Chart Complete MTDD
--- NOTE | 2016-08-06 13:52 | EDDOCDS ---
Nurse's Notes [facility] Name: Víctor Brasher Age: 40 yrs Sex: Male : 1975 Arrival Date: 08/04/2016 Time: 10:08 Bed TR8 Private MD: Kiki Anne A Diagnosis: Unilateral inguinal hernia, without obstruction or gangrene-left fat containing, reducible Presentation: 08/04 10:19 Presenting complaint: Patient states: Wednesday night while lifting on pt and felt srm something pull in groin. seen here had ct and us and dx with hernia. diarrhea for past few days and now firming up. patter more frequently. pt got in touch with surgeon and cant see until next week. pain is persisting. Risk factors: the patient reports not having a history of previous torsion. Adult Sepsis Screening: The patient does not have new or worsening altered mentation. Patient's respiratory rate is less than 22. Systolic blood pressure is greater than 100. Patient has a qSOFA score of 0- Negative Sepsis Screen. Suicide/Homicide risk assessment- the patient denies having any suicidal and/or homicidal ideations and does not present with any other emotional, behavioral or mental health complaints. 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 Transition of care: patient was not received from another setting of care. 10:19 Acuity: ELI Level 3 srm 10:19 Method Of Arrival: Walkin/Carried/Asstd srm 10:22 Presenting complaint: Patient states: felt a bulge in right groin area. srm Triage Assessment: 10:22 General: Appears in no apparent distress, Behavior is appropriate for age, cooperative. srm Pain: Pain currently is 4 out of 10 on a pain scale. At worst was 6 out of 10 on a pain scale. HIV screening NA for this visit Offered previously. GI: Reports abdominal and groin pain. Historical: - Allergies: no known allergies; - Home Meds: 1. olmesartan-hydrochlorothiazide 20-12.5 mg oral tab 1 tab once daily 2. fortesta 40 unit daily 3. Motrin 600 mg Oral tab 1 tab as needed (Last dose: 08/04/2016 04:00) 4. Zyrtec 10 mg oral cap daily - PMHx: Seasonal Allergies; Hypertension; - PSHx: Hernia repair; Tonsillectomy; Adenoidectomy; Appendectomy; - Social history: Smoking status: Patient states was never smoker of tobacco. No barriers to communication noted, The patient speaks fluent French, Speaks appropriately for age. - Family history: No immediate family members are acutely ill. - : The pt / caregiver states he / she is not on anticoagulants. Home medication list is obtained from the patient. - Exposure Risk Screening:: None identified. Screenin:48 Screening information is obtained from the patient. Fall risk: No risks identified. mb9 Assistance ADL's: requires no assistance with activities of daily living. Abuse/DV Screen: The patient / caregiver reports he/she is: not in a situation that causes fear, pain or injury. Nutritional screening: No deficits noted. Advance Directives: There is no active DNR order. home support is adequate. Assessment: 12:48 General: Appears in no apparent distress, Behavior is appropriate for age, cooperative. mb9 Respiratory: Airway is patent Respiratory effort is even, unlabored. GI: Abdomen is flat, non- distended Reports diarrhea. Vital Signs: 10:10 BP 137 / 86; Pulse 91; Resp 16; Temp 97.9(O); Pulse Ox 96% ; Weight 100.7 kg; Height 5 cmb ft. 10 in. (177.80 cm); Pain 6/10; 12:20 BP 130 / 79; Pulse 75; Resp 18; Temp 98.4(TE); Pulse Ox 97% on R/A; Pain 6/10; mdr 10:10 Body Mass Index 31.85 (100.70 kg, 177.80 cm) cmb Vitals: 10:10 Log In Time: August 04, 2016 at 10:08. cmb ED Course: 10:09 Patient visited by Inés Edwards. cmb 10:09 Kiki Anne is Private Physician. cmb 10:09 Patient moved to Waiting cmb 10:11 Patient moved to Pre RCE cmb 10:21 Triage Initiated srm 10:23 Patient moved to Triage 3 srm 10:24 Dwight Grey PA-C [facility]. ar2 10:24 David Banks MD is Attending Physician. ar2 10:27 Patient visited by Dwight Grey PA-C. ar2 10:45 Patient moved to PR1 / 25 srm 10:45 Patient moved to Ultrasound srm 11:23 Lactic Acid (Oliveira tube on ice) Sent. mdr 11:23 CBC with Diff Sent. mdr 11:27 Patient name changed from Víctor\S\A\S\Brasher\S\ to Víctor\S\Emery\S\Brasher. EDMS 11:28 [facility] Payment Agreement was scanned into [employer] and attached to record. lg 11:30 Patient moved to PR1 / 25 mb9 11:34 Patient moved to TR1 mdr 11:45 ABD US: Limited Returned. EDMS 12:00 Patient moved to PR1 / 25 mdr 12:21 Patient visited by Jas Hernández PCA. mdr 12:36 Patient moved to TR8 mb9 12:42 T-Sheet-- Draft Copy was scanned into [employer] and attached to record. gb 12:48 The patient / caregiver is instructed regarding the plan of care and ED course. mb9 12:48 No IV's were initiated during this patient's visit. No procedures done that require mb9 assistance. 14:52 ABD US: Limited Returned. EDMS 08/05 11:30 Radiology Report was scanned into [employer] and attached to record. gb Order Results: Lab Order: CBC with Diff; SPEC'M 08/04/ 11:23 Test: WHITE BLOOD COUNT; Value: 7.1; Range: 4.0-10.0; Units: K/mm3; Status: F Test: RED BLOOD COUNT; Value: 5.18; Range: 4.30-6.10; Units: M/mm3; Status: F Test: HEMOGLOBIN; Value: 16.5; Range: 14.0-18.0; Units: g/dl; Status: F Test: HEMATOCRIT; Value: 48.6; Range: 42.0-52.0; Units: %; Status: F Test: MEAN CORPUSCULAR VOLUME; Value: 93.8; Range: 80.0-96.0; Units: fl; Status: F Test: MEAN CORPUSCULAR HEMOGLOBIN; Value: 31.9; Range: 27.0-33.0; Units: pg; Status: F Test: MEAN CORPUSCULAR HGB CONC; Value: 34.0; Range: 32.0-36.5; Units: g/dl; Status: F Test: RED CELL DISTRIBUTION WIDTH; Value: 12.8; Range: 11.5-14.5; Units: %; Status: F Test: PLATELET COUNT, AUTOMATED; Value: 249; Range: 150-450; Units: k/mm3; Status: F Test: NEUTROPHILS %; Value: 61.3; Range: 36.0-66.0; Units: %; Status: F Test: LYMPH %; Value: 25.6; Range: 24.0-44.0; Units: %; Status: F Test: MONO %; Value: 7.2; Range: 0.0-5.0; Abnormal: Above high normal; Units: %; Status: F Test: EOS %; Value: 2.4; Range: 0.0-3.0; Units: %; Status: F Test: BASO %; Value: 1.5; Range: 0.0-1.0; Abnormal: Above high normal; Units: %; Status: F Test: LARGE UNSTAINED CELL %; Value: 2.1; Range: 0.0-4.0; Units: %; Status: F Test: NEUTROPHILS #; Value: 4.3; Range: 1.8-7.7; Units: K/mm3; Status: F Test: LYMPH #; Value: 2.0; Range: 1.5-4.5; Units: K/mm3; Status: F Test: MONO #; Value: 0.5; Range: 0.0-0.8; Units: K/mm3; Status: F Test: EOS #; Value: 0.2; Range: 0.0-0.50; Units: K/mm3; Status: F Test: BASO #; Value: 0.1; Range: 0.0-0.2; Units: K/mm3; Status: F Test: LARGE UNSTAINED CELL #; Value: 0.2; Range: 0.0-0.4; Units: K/mm3; Status: F Lab Order: Lactic Acid (Oliveira tube on ice); SPEC'M 08/04/16 11:23 Test: LACTIC ACID LEVEL, LACTATE; Value: 1.3; Range: 0.4-2.0; Units: MMOL/L; Status: F Radiology Order: ABD US: Limited Test: ABD US: Limited REASON FOR EXAMINATION: bilateral inguinal pain, ? hernia; BILATERAL INGUINAL SOFT-TISSUE ULTRASOUND:; ; HISTORY: Bilateral inguinal pain. Question hernia. Painful pop sensation.; ; FINDINGS: Bilateral inguinal canal sonography is performed. No abnormalities; noted on the right. On the left the inguinal canal appears dilated with Valsalva; to 5 mm transmitting a small amount of intra-abdominal fat with Valsalva.; Reduces with rest. No abnormal fluid collection is seen.; ; IMPRESSION: Findings consistent with a small left inguinal hernia transmitting; abdominal fat. Correlation with clinical exam suggested.; ; ; Signed by; Edgar Eugene MD 08/04/2016 02:32 P; Outcome: 08/04 12:14 Discharge ordered by Provider. ar2 12:48 Discharge Assessment: patient administered narcotics - no. The following High Risk mb9 Discharge criteria are identified: None. Discharged to home ambulatory. Condition: good Condition: stable Condition: improved. Discharge instructions given to patient, Instructed on discharge instructions, follow up and referral plans. medication usage, Demonstrated understanding of instructions, medications, Pt was receptive of discharge instructions/ teaching. Work note provided to patient. Ultrasound Study completed. Property :Personal belongings accompany Pt. 12:51 Patient left the ED. mb9 Signatures: Dispatcher [employer] EDMS Corinne Lopes, RN RN srm Candy Brown, Reg Reg gb Marlene Reyes, Reg Reg lg Dwight Grey, PARand PARand ar2 Inés Edwards Michael,RN RN mb9 Jas Hernández, [employer] ACCOUNT REPRESENTATIVE mdr Chart Complete MTDD
== END 2016-08-04 12:51 | disposition home or self-care (01) ==
LOC: M ED 10:08
DX: K40.90 Unilateral inguinal hernia, without obstruction or gangrene, not specified as recurrent (principal); J30.9 Allergic rhinitis, unspecified; I10 Essential (primary) hypertension; Z79.899 Other long term (current) drug therapy

== ENCOUNTER 2017-12-31 00:55 | Emergency (ER) | payer OTHER ==
[2017-12-31] MEDS: NS 1,000 ML IV ×2 (02:00)
[2017-12-31 02:31] LABS: BASO % 0.2 % (0.0-1.0); EOS % 0.3 % (0.0-3.0); HEMATOCRIT 42.3 % (42.0-52.0); HEMOGLOBIN 14.7 g/dl (13.5-17.5); IMMATURE GRANULOCYTE % 0.4 % (0-3.0); LYMPH # 0.4 10^3/uL (1.5-4.5); LYMPH % 3.8 % (24.0-44.0); MEAN CORPUSCULAR HGB CONC 34.8 g/dl (32.0-36.5); MONO # 0.4 10^3/uL (0.0-0.8); NEUTROPHILS # 9.9 10^3/uL (1.8-7.7); NEUTROPHILS % 91.3 % (36.0-66.0); PLATELET COUNT, AUTOMATED 227 10^3/uL (150-450); RED CELL DISTRIBUTION WIDTH 12.9 % (11.5-14.5); WHITE BLOOD COUNT 10.8 10^3/uL (4.0-10.0)
[2017-12-31 02:35] LABS: KETONE, URINE AUTO RFX NEGATIVE (NEGATIVE); LEUKOCYTE ESTERASE UR AUTO RFX NEGATIVE (NEGATIVE); MUCUS, URINE RFX SMALL (NEGATIVE); NITRITE, URINE AUTO RFX NEGATIVE (NEGATIVE); RBC, URINE AUTO RFX 1 /HPF (0-3); SPECIFIC GRAVITY UR AUTO RFX 1.016 (1.002-1.035); SQUAM EPITHELIAL CELL UR AURFX 0 /HPF (0-6); WBC, URINE AUTO RFX 0 /HPF (0-3)
[2017-12-31 02:48] LABS: ALBUMIN 4.1 GM/DL (3.2-5.2); ALBUMIN/GLOBULIN RATIO 1.21 (1.00-1.93); ALKALINE PHOSPHATASE 71 U/L (45-117); ALT/SGPT 45 U/L (12-78); ANION GAP 10 MEQ/L (8-16); AST/SGOT 19 U/L (7-37); BILIRUBIN,DIRECT 0.1 MG/DL (0.0-0.2); BILIRUBIN,TOTAL 0.5 MG/DL (0.2-1.0); BLOOD UREA NITROGEN 13 MG/DL (7-18); CALCIUM LEVEL 8.9 MG/DL (8.5-10.1); CARBON DIOXIDE LEVEL 27 MEQ/L (21-32); CHLORIDE LEVEL 104 MEQ/L (98-107); CREATININE FOR GFR 0.98 MG/DL (0.70-1.30); GLOMERULAR FILTRATION RATE > 60.0 (>60); GLUCOSE, FASTING 105 MG/DL (70-100); LIPASE 100 U/L (73-393); SODIUM LEVEL 141 MEQ/L (136-145); TOTAL PROTEIN 7.5 GM/DL (6.4-8.2)
[2017-12-31] MEDS: ONDANSETRON 4MG/2ML VIAL (J2405) IV ×2 (04:09)
[2017-12-31] MEDS: ACETAMINOPHEN 325 MG TAB PO ×2 (05:40)
[2017-12-31] MEDS: dexameTHASONE 20 MG/5 ML VIAL (J1100) IV ×2 (05:41)
== END 2017-12-31 06:06 | disposition home or self-care (01) ==
LOC: M ED 00:55
DX: J20.9 Acute bronchitis, unspecified (principal); E83.119 Hemochromatosis, unspecified; Z79.899 Other long term (current) drug therapy
CPT/HCPCS: J1100

== ENCOUNTER → 2018-12-01 | Outpatient (REF) | payer OTHER ==
[~2018-12-01] MED LIST: HYDR12.55 PO; OLME1TAB11 PO; PRED20TA PO; TYLE325T5 PO
== END ==
LOC: M LAB REF 09:08
PROVIDERS: ATTEND Internal Medicine Gastroenterology
DX: R19.7 Diarrhea, unspecified (principal)

== ENCOUNTER → 2018-12-02 | Outpatient (CLI) | payer OTHER ==
[~2018-12-02] MED LIST changes: +GASTROGRAFIN SOLUTION 30ML (Q9963) As Ordered ONE; +ISOVUE-370 76% 100ML VIAL (Q9967) As Ordered ONE
--- NOTE | 2018-12-02 17:16 | REP ---
CT abdomen pelvis with IV and oral contrast: History: Right upper quadrant tenderness. Comparison CT study August 01, 2016. 100 ml of intravenous Isovue [address] findings: Digital preliminary manager integrity radiograph is unremarkable. Bowel gas pattern is normal. The lung bases are clear on axial CT images. The liver and the spleen are normal in size homogeneous in texture. There is a tiny accessory splenule. No adrenal lesion is seen on either side. Pancreas is unremarkable. No abnormalities noted in the gallbladder. No retroperitoneal mass or adenopathy is seen. Small and large intestinal bowel loops are unremarkable. The appendix is surgically absent. There are dystrophic calcifications in the prostate without enlargement. Urinary bladder is unremarkable. No abdominal wall defect is seen. No bony lesion is appreciated. There are postoperative changes in the left inguinal soft tissues with clips post herniorrhaphy. Impression: No acute abdominal abnormality. Electronically Signed by Edgar Eugene MD 12/02/2018 06:35 P
== END ==
LOC: M RAD 07:19
PROVIDERS: ATTEND Internal Medicine Medical Oncology
DX: R10.821 Right upper quadrant rebound abdominal tenderness (principal)
CPT/HCPCS: 74177; Q9963; Q9967

== ENCOUNTER 2019-01-31 11:19 | Day surgery (SDC) | payer OTHER ==
[~2019-01-31] VITALS: Ht 177.8 cm; Wt 97.0 kg
[~2019-01-31 11:19] MED LIST changes: +CIPR500T3; +FLON1SPR NARES; -GASTROGRAFIN SOLUTION 30ML (Q9963) As Ordered ONE; -ISOVUE-370 76% 100ML VIAL (Q9967) As Ordered ONE; +MECL-86; +METR-265; +NS 1,000 ML IV ONE; +VALI5TAB PO; +ZYRTTAB8 PO
[2019-01-31] MEDS ORDERED: DICY20TA11 PO (12:06)
[2019-01-31] MEDS ORDERED: PROPOFOL 200 MG/20 ML VIAL As Ordered ONE ×2 (13:07→13:29)
[2019-01-31] MEDS ORDERED: LIDOCAINE 2% INJ 100 MG/5 ML SDV (FOR ANES.) As Ordered ONE (13:07)
--- NOTE | 2019-01-31 13:19 | ROOR ---
Patient Name: Víctor Brasher Procedure Date: 01/31/2019 1:04 PM Date of : 1975 Age: 43 Room: [facility] Gender: Male Note Status: Finalized Procedure: Upper GI endoscopy Indications: Epigastric abdominal pain, Heartburn, Diarrhea, Nausea Providers: Jerzy AMEZCUA MD Referring MD: SIDRA RUSSELL MD Requesting Provider: Medicines: Monitored Anesthesia Care Complications: No immediate complications. Procedure: Pre-Anesthesia Assessment: - The heart rate, respiratory rate, oxygen saturations, blood pressure, adequacy of pulmonary ventilation, and response to care were monitored throughout the procedure. The Endoscope was introduced through the mouth, and advanced to the third part of duodenum. The upper GI endoscopy was accomplished without difficulty. The patient tolerated the procedure well. Findings: The esophagus was normal. The stomach was normal. The examined duodenum was normal. Biopsies for histology were taken with a cold forceps in the second portion of the duodenum and in the third portion of the duodenum for evaluation of celiac disease. Impression: - Normal esophagus. - Normal stomach. - Normal examined duodenum. - Biopsies were taken with a cold forceps for evaluation of celiac disease. Recommendation: - Await pathology results. - Telephone endoscopist for pathology results in 2 weeks. Jerzy Amezcua MD Jerzy AMEZCUA MD 01/31/2019 1:18:54 PM Electronically signed by Jerzy AMEZCUA MD Number of Addenda: 0 Note Initiated On: 01/31/2019 1:04 PM Estimated Blood Loss: Estimated blood loss: none.
--- NOTE | 2019-01-31 13:40 | ROOR ---
Patient Name: Víctor Brasher Procedure Date: 01/31/2019 1:05 PM Date of : 1975 Age: 43 Room: [facility] Gender: Male Note Status: Finalized Procedure: Colonoscopy Indications: Exclusion of ulcerative colitis, Exclusion of Crohn's disease, Personal history of colonic polyps, Abnormal CT of the GI tract, Suspected irritable bowel syndrome, Irritable bowel syndrome with diarrhea Providers: Jerzy AMEZCUA MD Referring MD: SIDRA RUSSELL MD Requesting Provider: Medicines: Monitored Anesthesia Care Complications: No immediate complications. Procedure: Pre-Anesthesia Assessment: - The heart rate, respiratory rate, oxygen saturations, blood pressure, adequacy of pulmonary ventilation, and response to care were monitored throughout the procedure. The Colonoscope was introduced through the anus and advanced to 15 cm into the ileum. The colonoscopy was performed without difficulty. The patient tolerated the procedure well. The quality of the bowel preparation was good. Findings: The perianal and digital rectal examinations were normal. The terminal ileum appeared normal. Biopsies were taken with a cold forceps for histology. Four sessile polyps were found in the splenic flexure and proximal transverse colon. The polyps were diminutive in size. These polyps were removed with a cold snare. Resection and retrieval were complete. Internal hemorrhoids were found during retroflexion. The hemorrhoids were medium-sized. The exam was otherwise normal throughout the examined colon. Biopsies for histology were taken with a cold forceps from the entire colon for evaluation of microscopic colitis. Impression: - The terminal ileum (15-20 cm) is normal. Biopsied. - Four diminutive polyps at the splenic flexure and in the proximal transverse colon, removed with a cold snare. Resected and retrieved. - Internal hemorrhoids. - The colon is otherwise normal. - Biopsies were taken with a cold forceps from the entire colon for evaluation of microscopic colitis. - (There is no endoscopic evidence of ileitis or colitis on this exam) Recommendation: - Continue present medications. - Await pathology results. - Telephone endoscopist for pathology results in 2 weeks. - If applicable, reduce alcohol intake. Jerzy Amezcua MD Jerzy AMEZCUA MD 01/31/2019 1:40:15 PM Electronically signed by Jerzy AMEZCUA MD Number of Addenda: 0 Note Initiated On: 01/31/2019 1:05 PM Estimated Blood Loss: Estimated blood loss: none.
[2019-01-31 14:00] VITALS: BP 123/73
== END 2019-01-31 14:13 | disposition home or self-care (01) ==
LOC: M OPP 11:19
PROVIDERS: ATTEND Internal Medicine Gastroenterology
DX: K64.8 Other hemorrhoids (principal); D12.3 Benign neoplasm of transverse colon; K58.0 Irritable bowel syndrome with diarrhea; R93.3 Abnormal findings on diagnostic imaging of other parts of digestive tract; Z86.010 Personal history of colon polyps; R10.13 Epigastric pain; R19.7 Diarrhea, unspecified; R11.0 Nausea

== ENCOUNTER → 2020-01-18 | Outpatient (CLI) | payer OTHER ==
[~2020-01-18] MED LIST changes: +DICY20TA11 PO; +MECL-86 PO; -NS 1,000 ML IV ONE; -OLME1TAB11 PO; +OLME1TAB43 PO; +ONDA-83 PO
[2020-01-18 08:40] LABS: BASO # 0.1 10^3/uL (0.0-0.2); BASO % 0.8 % (0.0-1.0); EOS # 0.3 10^3/uL (0.0-0.5); EOS % 4.1 % (0.0-3.0); HEMATOCRIT 41.9 % (42.0-52.0); HEMOGLOBIN 14.5 g/dl (13.5-17.5); LYMPH # 1.8 10^3/uL (1.5-5.0); LYMPH % 25.9 % (24.0-44.0); MEAN CORPUSCULAR HEMOGLOBIN 32.2 pg (27.0-33.0); MEAN CORPUSCULAR HGB CONC 34.6 g/dl (32.0-36.5); MEAN CORPUSCULAR VOLUME 93.1 fl (80.0-96.0); MONO # 0.7 10^3/uL (0.0-0.8); MONO % 9.2 % (0.0-5.0); NEUTROPHILS # 4.2 10^3/uL (1.5-8.5); NEUTROPHILS % 59.6 % (36.0-66.0); PLATELET COUNT, AUTOMATED 272 10^3/uL (150-450); WHITE BLOOD COUNT 7.1 10^3/uL (4.0-10.0)
== END ==
LOC: M LAB 08:09
PROVIDERS: ATTEND Internal Medicine Medical Oncology
DX: E83.119 Hemochromatosis, unspecified (principal)

== ENCOUNTER 2020-02-21 22:41 | Emergency (ER) | payer OTHER ==
[~2020-02-21 22:41] MED LIST changes: +GI COCKTAIL 50ML BTL(HYOSCYAMINE/MAALOX/LIDOCAINE VISCOUS)(1:3:1) ONE; +KETOROLAC 30 MG/ML 1ML VIAL ONE
[2020-02-21] MEDS ORDERED: GI COCKTAIL 50ML BTL(HYOSCYAMINE/MAALOX/LIDOCAINE VISCOUS)(1:3:1) As Ordered ONE (23:12)
[2020-02-22] MEDS ORDERED: ISOVUE-370 76% 100ML VIAL As Ordered ONE (01:14)
[2020-02-22] MEDS ORDERED: KETOROLAC 30 MG/ML 1ML VIAL As Ordered ONE (01:50)
--- NOTE | 2020-04-04 16:34 | ECGEPIP ---
SINUS RHYTHM PRWP NONSPECIFIC ST & T-WAVE CHANGES SEE SCANNED DOWNTIME REPORT MTDD
--- NOTE | 2020-04-04 16:35 | ECGEPIP ---
SINUS RHYTHM NONSPECIFIC ST & T-WAVE CHANGES PRWP SEE SCANNED DOWNTIME REPORT MTDD
[2020-04-07 10:38] LABS: INR 0.93; PARTIAL THROMBOPLASTIN TIME 25.2 SECONDS (24.2-38.5); PROTHROMBIN TIME 12.6 SECONDS (12.5-14.3)
[2020-04-07 11:15] LABS: CK-MB VALUE MASS 1.1 NG/ML (<3.6); CPK CREATINE PHOSPHOKINASE 75 U/L (39-308); MB/CK RELATIVE INDEX 1.47 (< OR =4); TROPONIN I < 0.02 NG/ML (< 0.10)
[2020-04-07 11:44] LABS: BASO # 0.1 10^3/uL (0.0-0.2); BASO % 0.8 % (0.0-1.0); EOS # 0.3 10^3/uL (0.0-0.5); EOS % 4.1 % (0.0-3.0); HEMATOCRIT 43.9 % (42.0-52.0); HEMOGLOBIN 14.9 g/dl (13.5-17.5); LYMPH % 26.5 % (24.0-44.0); MEAN CORPUSCULAR HEMOGLOBIN 32.1 pg (27.0-33.0); MEAN CORPUSCULAR HGB CONC 33.9 g/dl (32.0-36.5); MEAN CORPUSCULAR VOLUME 94.6 fl (80.0-96.0); MONO # 0.6 10^3/uL (0.0-0.8); MONO % 8.5 % (0.0-5.0); NEUTROPHILS # 4.5 10^3/uL (1.5-8.5); NEUTROPHILS % 59.4 % (36.0-66.0); PLATELET COUNT, AUTOMATED 264 10^3/uL (150-450); RED BLOOD COUNT 4.64 10^6/uL (4.30-6.10); WHITE BLOOD COUNT 7.6 10^3/uL (4.0-10.0)
--- NOTE | 2020-04-12 13:52 | REP ---
PORTABLE CHEST X-RAY: SINGLE VIEW HISTORY: Unavailable. Report is delayed due to a malware attack on this facility. FINDINGS: The lungs are well-inflated and clear. Pleural angles are sharp. Heart size is normal. Pulmonary vasculature is not increased. Monitoring electrodes are seen. No significant bony abnormality. IMPRESSION: Negative portable chest x-ray. MTDD
[2020-05-18 10:12] LABS: ALBUMIN 4.3 GM/DL (3.2-5.2); ALT/SGPT 76 U/L (12-78); BILIRUBIN,TOTAL 0.4 MG/DL (0.2-1.0); BLOOD UREA NITROGEN 12 MG/DL (7-18); CALCIUM LEVEL 9.5 MG/DL (8.5-10.1); CARBON DIOXIDE LEVEL 27 MEQ/L (21-32); CHLORIDE LEVEL 108 MEQ/L (98-107); CK-MB VALUE MASS 1.3 NG/ML (<3.6); CPK CREATINE PHOSPHOKINASE 88 U/L (39-308); CREATININE FOR GFR 1.01 MG/DL (0.70-1.30); GLOMERULAR FILTRATION RATE > 60.0 (>60); GLUCOSE, FASTING 95 MG/DL (70-100); MB/CK RELATIVE INDEX 1.48 (< OR =4); POTASSIUM SERUM 4.2 MEQ/L (3.5-5.1); SODIUM LEVEL 141 MEQ/L (136-145); TOTAL PROTEIN 7.6 GM/DL (6.4-8.2); TROPONIN I < 0.02 NG/ML (< 0.10)
== END 2020-02-22 04:00 | disposition home or self-care (01) ==
LOC: M ED 22:41
DX: I10 Essential (primary) hypertension (principal); R07.9 Chest pain, unspecified; R94.31 Abnormal electrocardiogram [ECG] [EKG]; Z79.899 Other long term (current) drug therapy
CPT/HCPCS: 71045; 71275; 80053; 82550; 82553; 84484; 85025; 85610; 85730; 93005; 96374; 99284; J1885; Q9967

== ENCOUNTER → 2020-05-23 | Outpatient (CLI) | payer SELFPAY ==
[~2020-05-23] MED LIST changes: -GI COCKTAIL 50ML BTL(HYOSCYAMINE/MAALOX/LIDOCAINE VISCOUS)(1:3:1) ONE; -KETOROLAC 30 MG/ML 1ML VIAL ONE
== END ==
LOC: M LABSMTC 13:54
PROVIDERS: ATTEND Pediatrics
DX: Z20.828 Contact with and (suspected) exposure to other viral communicable diseases (principal)

== ENCOUNTER → 2020-06-16 | Outpatient (CLI) | payer SELFPAY ==
[~2020-06-16] MED LIST changes: -OLME1TAB43 PO; +OLME1TAB49 PO
== END ==
LOC: M LABSMTC 10:00
PROVIDERS: ATTEND Pediatrics
DX: Z20.828 Contact with and (suspected) exposure to other viral communicable diseases (principal)

== ENCOUNTER → 2020-08-03 | Outpatient (CLI) | payer OTHER | LOC: M LAB 08-02 23:59 | PROVIDERS: ATTEND Internal Medicine Infectious Disease | DX: Z20.822 Contact with and (suspected) exposure to COVID-19 (principal) ==

== ENCOUNTER → 2021-04-09 | Outpatient (REF) | LOC: M EMP 13:56 | PROVIDERS: ATTEND Family Medicine | DX: Z20.828 Contact with and (suspected) exposure to other viral communicable diseases (principal) ==

== ENCOUNTER → 2021-06-06 | Outpatient (REF) ==
[2021-06-06 09:11] LABS: RSV AMPLIFICATION NEGATIVE (NEGATIVE)
== END ==
LOC: M EMP 08:18
PROVIDERS: ATTEND Family Medicine
DX: Z20.828 Contact with and (suspected) exposure to other viral communicable diseases (principal)

== ENCOUNTER → 2021-06-18 | Outpatient (REF) ==
[~2021-06-18] MED LIST changes: +AZIT-12 PO; -DICY20TA11 PO; +DICY20TA20 PO
[2021-06-18 20:09] LABS: RSV AMPLIFICATION NEGATIVE (NEGATIVE)
== END ==
LOC: M EMP 19:16
PROVIDERS: ATTEND Family Medicine
DX: Z20.822 Contact with and (suspected) exposure to COVID-19 (principal)

== ENCOUNTER 2021-07-09 22:46 | Emergency (ER) | payer BC, OTHER ==
[~2021-07-09] VITALS: Ht 177.8 cm; Wt 110.9 kg
[~2021-07-09 22:46] MED LIST changes: -AZIT-12 PO; +DICY20TA11 PO; -DICY20TA20 PO
[2021-07-09 23:34] LABS: BASO % 0.5 % (0.0-1.0); EOS % 0.5 % (0.0-3.0); HEMATOCRIT 44.5 % (42.0-52.0); HEMOGLOBIN 15.5 g/dl (13.5-17.5); LYMPH # 2.3 10^3/uL (1.5-5.0); LYMPH % 29.1 % (24.0-44.0); MEAN CORPUSCULAR HEMOGLOBIN 31.7 pg (27.0-33.0); MEAN CORPUSCULAR HGB CONC 34.8 g/dl (32.0-36.5); MONO # 0.7 10^3/uL (0.0-0.8); NEUTROPHILS # 4.7 10^3/uL (1.5-8.5); NEUTROPHILS % 60.1 % (36.0-66.0); PLATELET COUNT, AUTOMATED 285 10^3/uL (150-450); RED BLOOD COUNT 4.89 10^6/uL (4.30-6.10); WHITE BLOOD COUNT 7.9 10^3/uL (4.0-10.0)
[2021-07-09 23:55] LABS: BLOOD UREA NITROGEN 15 MG/DL (7-18); CALCIUM LEVEL 9.6 MG/DL (8.5-10.1); CARBON DIOXIDE LEVEL 28 MEQ/L (21-32); CHLORIDE LEVEL 104 MEQ/L (98-107); GLOMERULAR FILTRATION RATE > 60.0 (>60); GLUCOSE, FASTING 99 MG/DL (70-100); POTASSIUM SERUM 3.9 MEQ/L (3.5-5.1); SODIUM LEVEL 139 MEQ/L (136-145)
[2021-07-09] MEDS: KETOROLAC 30 MG/ML 1ML VIAL IV ONE (23:55)
[2021-07-09] MEDS: NS 1,000 ML IV ONE (23:56)
--- NOTE | 2021-07-09 23:58 | REPVR ---
PROCEDURE INFORMATION: Exam: XR Chest Exam date and time: 07/09/21 (11:01pm) Age: 45 years old Clinical indication: Chest pain TECHNIQUE: Imaging protocol: Portable CXR Views: 1 view COMPARISON: Portable CXR of 02/21/20 FINDINGS: Lungs: Unremarkable. No consolidation. Pleural spaces: Unremarkable. No pleural effusions. No pneumothorax. Heart/Mediastinum: Unremarkable. No cardiomegaly. Bones/joints: Unremarkable. IMPRESSION: No acute findings. Electronically signed by: Jenni Mcdaniel On 07/09/2021 23:57:52 PM
[2021-07-10 00:11] LABS: CK-MB VALUE MASS < 1.0 NG/ML (<3.6); CPK CREATINE PHOSPHOKINASE 61 U/L (39-308); MB/CK RELATIVE INDEX 1.64 (< OR =4)
[2021-07-10] MEDS ORDERED: ISOVUE-370 76% 100ML VIAL As Ordered ONE (01:06)
--- NOTE | 2021-07-10 03:22 | REPVR ---
PROCEDURE INFORMATION: Exam: CTA Chest With Contrast Exam date and time: 07/10/2021 12:56 AM Age: 45 years old Clinical indication: Pain; Other: Chest; Additional info: SOB chest pain TECHNIQUE: Imaging protocol: Computed tomographic angiography of the chest with contrast. 3D rendering (Not supervised by radiologist): MIP and/or 3D reconstructed images were created by the technologist. Radiation optimization: All CT scans at this facility use at least one of these dose optimization techniques: automated exposure control; mA and/or kV adjustment per patient size (includes targeted exams where dose is matched to clinical indication); or iterative reconstruction. Contrast material: ISO; Contrast volume: 75 ml; Contrast route: INTRAVENOUS (IV); COMPARISON: CT ANGIO CHEST 02/22/2020 1:09 AM FINDINGS: Pulmonary arteries: The main pulmonary artery measures 24 mm. No pulmonary embolism is identified. Aorta: The ascending thoracic aorta measures 31 mm. Lungs: Minimal infiltrate or atelectasis in the left lower lobe. Pleural spaces: Unremarkable. No pneumothorax. No pleural effusion. Heart: Unremarkable. No cardiomegaly. No pericardial effusion. Lymph nodes: Unremarkable. No enlarged lymph nodes. Bones/joints: Unremarkable. No acute fracture. Soft tissues: Unremarkable. IMPRESSION: 1. Minimal infiltrate or atelectasis in the left lower lobe. 2. Otherwise negative CTA chest. No pulmonary embolism is identified. Electronically signed by: Jordin Mark On 07/10/2021 03:22:08 AM
[2021-07-10] MEDS: AZITHROMYCIN 250MG TABLET PO ONE (03:50)
[2021-07-10 05:01] VITALS: BP 147/79
[2021-07-10] MEDS ORDERED: AZIT-12 PO (05:09)
--- NOTE | 2021-07-10 06:44 | ECGEPIP ---
[facility] - ED Test Date: 2021-07-09 Pat Name: ISSAC QUIROS Department: Room: - Gender: Male Certified Dialysis Technician: ANA : 1975 Requested By: ANNIA Crowder Order Number: [id number] Reading MD: David Banks Measurements Intervals [place] Rate: 92 P: 18 MN: 152 QRS: 7 QRSD: 90 T: 15 QT: 358 QTc: 442 Interpretive Statements Normal sinus rhythm SIMILAR TO 05/19/17 Electronically Signed on 07-10-2021 6:44:34 EST by David Banks
--- NOTE | 2021-07-10 06:50 | ECGEPIP ---
[facility] - ED Test Date: 2021-07-10 Pat Name: ISSAC QUIROS Department: Room: - Gender: Male Director Of Intelligence: ANA : 1975 Requested By: ANNIA Crowder Order Number: [id number] Reading MD: David Banks Measurements Intervals [place] Rate: 74 P: 12 RI: 160 QRS: 6 QRSD: 94 T: 10 QT: 384 QTc: 426 Interpretive Statements Normal sinus rhythm NONSPECIFIC T WAVE ABNORMALITY(S) SIMILAR TO 07/09/21 Electronically Signed on 07-10-2021 6:50:12 EST by David Banks
== END 2021-07-10 05:15 | disposition home or self-care (01) ==
LOC: M ED 22:46
DX: R07.9 Chest pain, unspecified (principal); Z86.16 Personal history of COVID-19; I10 Essential (primary) hypertension; H91.91 Unspecified hearing loss, right ear; E83.119 Hemochromatosis, unspecified
CPT/HCPCS: 71045; 71275; 80048; 82553; 84484; 85025; 85379; 93005; 93041; 94760; 96361; 96374; 99285; J1885; Q9967

== ENCOUNTER → 2022-04-13 | Outpatient (REF) ==
[~2022-04-13] MED LIST changes: +AZIT-12 PO; -DICY20TA11 PO; +DICY20TA20 PO
[2022-04-13 10:14] LABS: RSV AMPLIFICATION NEGATIVE (NEGATIVE)
== END ==
LOC: M EMP 08:50
PROVIDERS: ATTEND Family Medicine
DX: Z20.822 Contact with and (suspected) exposure to COVID-19 (principal)

== ENCOUNTER 2022-09-10 20:36 | Emergency (ER) | payer BC, OTHER ==
[~2022-09-10] VITALS: Ht 177.8 cm; Wt 109.1 kg
[2022-09-10 21:08] LABS: BASO % 0.3 % (0.0-1.0); EOS % 0.2 % (0.0-3.0); HEMATOCRIT 43.9 % (42.0-52.0); HEMOGLOBIN 15.3 g/dl (13.5-17.5); LYMPH # 0.6 10^3/uL (1.5-5.0); LYMPH % 4.7 % (24.0-44.0); MEAN CORPUSCULAR HEMOGLOBIN 32.1 pg (27.0-33.0); MEAN CORPUSCULAR HGB CONC 34.9 g/dl (32.0-36.5); MEAN CORPUSCULAR VOLUME 92.2 fl (80.0-96.0); MONO # 0.6 10^3/uL (0.0-0.8); MONO % 4.9 % (2.0-8.0); NEUTROPHILS % 89.4 % (36.0-66.0); PLATELET COUNT, AUTOMATED 260 10^3/uL (150-450); RED BLOOD COUNT 4.76 10^6/uL (4.30-6.10); WHITE BLOOD COUNT 12.3 10^3/uL (4.0-10.0)
[2022-09-10] MEDS ORDERED: NS 1,000 ML IV ONE ×2 (21:15→23:40)
[2022-09-10] MEDS ORDERED: ONDANSETRON 4MG 2ML VIAL IV ONE (21:15)
[2022-09-10] MEDS ORDERED: ISOVUE-370 76% 100ML VIAL As Ordered ONE (21:24)
[2022-09-10 21:39] LABS: CK-MB VALUE MASS < 1.0 NG/ML (<3.6); LIPASE 25 U/L (12-53)
[2022-09-10 21:42] LABS: ALBUMIN 4.2 G/DL (3.2-5.2); ALKALINE PHOSPHATASE 65 U/L (46-116); ALT/SGPT 65 U/L (7.0-40); AST/SGOT 33 U/L (<34); BILIRUBIN,DIRECT 0.2 MG/DL (<0.4); BILIRUBIN,TOTAL 0.7 MG/DL (0.3-1.2); BLOOD UREA NITROGEN 20 MG/DL (9-23); CALCIUM LEVEL 9.1 MG/DL (8.5-10.1); CARBON DIOXIDE LEVEL 29 MMOL/L (20-31); CHLORIDE LEVEL 104 MMOL/L (98-107); CREATININE FOR GFR 0.87 MG/DL (0.70-1.30); GLOMERULAR FILTRATION RATE > 60.0 (>60); GLUCOSE, FASTING 104 MG/DL (60-100); SODIUM LEVEL 140 MMOL/L (136-145); TOTAL PROTEIN 7.3 G/DL (5.7-8.2)
[2022-09-10 21:44] LABS: CPK CREATINE PHOSPHOKINASE 69 U/L (46-171); MB/CK RELATIVE INDEX 1.44 (< OR =4)
[2022-09-10] MEDS ORDERED: KETOROLAC 30 MG/ML 1ML VIAL IV ONE (22:05)
[2022-09-10] MEDS ORDERED: METOCLOPRAMIDE INJ 10MG/2ML VIAL IV ONE (22:10)
[2022-09-10 22:48] LABS: CPK CREATINE PHOSPHOKINASE 59 U/L (46-171)
[2022-09-10 22:49] LABS: CK-MB VALUE MASS < 1.0 NG/ML (<3.6); MB/CK RELATIVE INDEX 1.69 (< OR =4)
[2022-09-10 22:55] LABS: RSV AMPLIFICATION NEGATIVE (NEGATIVE)
[2022-09-11] MEDS ORDERED: ACETAMINOPHEN TAB 650MG DOSE (2X325MG) PO ONE (00:50)
[2022-09-11 01:33] LABS: FERRITIN 242.3 NG/ML (10.5-307.3)
[2022-09-11] MEDS ORDERED: ONDA4TAB6 PO (01:38)
[2022-09-11 01:45] VITALS: BP 148/72
== END 2022-09-11 02:12 | disposition home or self-care (01) ==
LOC: M ED 20:36
DX: A08.4 Viral intestinal infection, unspecified (principal); I25.2 Old myocardial infarction; I10 Essential (primary) hypertension; F10.10 Alcohol abuse, uncomplicated; Z79.2 Long term (current) use of antibiotics; Z79.83 Long term (current) use of bisphosphonates; Z79.899 Other long term (current) drug therapy
CPT/HCPCS: 74177; 80048; 80076; 82550; 82553; 82728; 83605; 83690; 84484; 85025; 87507; 87631; 93005; 93041; 96361; 96374; 96375; 99285; J1885; J2405; J2765

== ENCOUNTER → 2023-02-16 | Outpatient (CLI) | payer BC ==
[~2023-02-16] MED LIST changes: +ONDA4TAB6 PO
== END ==
LOC: M PLALAB 08:38
PROVIDERS: ATTEND Internal Medicine Gastroenterology
DX: K58.2 Mixed irritable bowel syndrome (principal)

== ENCOUNTER → 2023-02-17 | Outpatient (REF) | payer BC ==
[2023-02-19 23:11] LABS: CALPROTECTIN STOOL <5 ug/g (0-120); PANCREATIC ELASTASE STOOL >500 (>200)
== END ==
LOC: M LAB REF 09:15
PROVIDERS: ATTEND Internal Medicine Gastroenterology
DX: K58.2 Mixed irritable bowel syndrome (principal)

== ENCOUNTER 2023-09-15 12:28 | Emergency (ER) | payer BC ==
[~2023-09-15] VITALS: Ht 177.8 cm; Wt 109.8 kg
[~2023-09-15 12:28] MED LIST changes: +CIAL10TA PO; +CLOT1CRE71 TOP; +MULT-90 PO
[2023-09-15] MEDS ORDERED: ROSU10TA6 PO (12:37)
[2023-09-15 13:20] LABS: BASO % 0.5 % (0.0-1.0); EOS % 0.3 % (0.0-3.0); HEMATOCRIT 41.5 % (42.0-52.0); HEMOGLOBIN 14.8 g/dl (13.5-17.5); LYMPH # 2.3 10^3/uL (1.5-5.0); LYMPH % 26.2 % (24.0-44.0); MEAN CORPUSCULAR HEMOGLOBIN 32.2 pg (27.0-33.0); MEAN CORPUSCULAR HGB CONC 35.7 g/dl (32.0-36.5); MEAN CORPUSCULAR VOLUME 90.4 fl (80.0-96.0); MONO # 0.7 10^3/uL (0.0-0.8); MONO % 8.2 % (2.0-8.0); NEUTROPHILS # 5.5 10^3/uL (1.5-8.5); NEUTROPHILS % 64.3 % (36.0-66.0); PLATELET COUNT, AUTOMATED 289 10^3/uL (150-450); RED BLOOD COUNT 4.59 10^6/uL (4.30-6.10); WHITE BLOOD COUNT 8.6 10^3/uL (4.0-10.0)
[2023-09-15 13:35] VITALS: BP 122/72
[2023-09-15] MEDS: ASPIRIN 81MG CHEW TABLET PO ONE (13:35)
[2023-09-15] MEDS: NITROGLYCERIN 0.4MG SUBL TABLET SL PRN (13:35)
[2023-09-15 13:51] LABS: CK-MB VALUE MASS < 1.0 NG/ML (<3.6); LIPASE 29 U/L (12-53)
[2023-09-15 13:54] LABS: ALBUMIN 4.2 G/DL (3.2-5.2); ALKALINE PHOSPHATASE 74 U/L (46-116); ALT/SGPT 92 U/L (7.0-40); AST/SGOT 27 U/L (<34); BILIRUBIN,DIRECT 0.1 MG/DL (<0.4); BILIRUBIN,TOTAL 0.4 MG/DL (0.3-1.2); BLOOD UREA NITROGEN 15 MG/DL (9-23); CALCIUM LEVEL 9.5 MG/DL (8.5-10.1); CARBON DIOXIDE LEVEL 25 MMOL/L (20-31); CHLORIDE LEVEL 105 MMOL/L (98-107); CPK CREATINE PHOSPHOKINASE 57 U/L (46-171); CREATININE FOR GFR 0.79 MG/DL (0.70-1.30); GLOMERULAR FILTRATION RATE > 60.0 (>60); GLUCOSE, FASTING 96 MG/DL (60-100); MB/CK RELATIVE INDEX 1.75 (< OR =4); POTASSIUM SERUM 4.1 MMOL/L (3.5-5.1); SODIUM LEVEL 139 MMOL/L (136-145); THYROID STIMULATING HORMONE 2.182 uIU/ML (0.55-4.78); TOTAL PROTEIN 7.2 G/DL (5.7-8.2)
[2023-09-15 13:56] LABS: FREE T4 1.17 NG/DL (0.89-1.76)
[2023-09-15] MEDS ORDERED: ISOVUE-370 76% 100ML VIAL As Ordered ONE (14:48)
[2023-09-15 15:07] LABS: CK-MB VALUE MASS < 1.0 NG/ML (<3.6)
[2023-09-15 15:19] LABS: CPK CREATINE PHOSPHOKINASE 51 U/L (46-171); MB/CK RELATIVE INDEX 1.96 (< OR =4)
[2023-09-15 15:45] VITALS: BP 121/63; TEMP 98.1; O2SAT 97
== END 2023-09-15 15:57 | disposition home or self-care (01) ==
LOC: M ED 12:28
DX: R07.9 Chest pain, unspecified (principal); I10 Essential (primary) hypertension; E78.5 Hyperlipidemia, unspecified; K58.9 Irritable bowel syndrome, unspecified; Z79.899 Other long term (current) drug therapy
CPT/HCPCS: 71045; 71275; 80048; 80076; 82550; 82553; 83690; 83880; 84439; 84443; 84484; 85025; 85730; 93005; 93041; 94760; 99285; Q9967

== ENCOUNTER → 2023-10-22 | Outpatient (CLI) | payer BC ==
[~2023-10-22] MED LIST changes: +ROSU10TA6 PO
== END ==
LOC: M PLAIMG 07:36
PROVIDERS: ATTEND Internal Medicine Cardiovascular Disease
DX: R06.02 Shortness of breath (principal); R94.31 Abnormal electrocardiogram [ECG] [EKG]

== ENCOUNTER → 2023-11-18 | Outpatient (CLI) | payer BC ==
[~2023-11-18] MED LIST changes: -ROSU10TA6 PO; +ROSU10TA61 PO
== END ==
LOC: M SLEEP HO 10:11
PROVIDERS: ATTEND Internal Medicine Cardiovascular Disease
DX: G47.33 Obstructive sleep apnea (adult) (pediatric) (principal)

== ENCOUNTER → 2024-06-12 | Outpatient (CLI) | payer BC ==
[~2024-06-12] MED LIST changes: -OLME1TAB49 PO; +OLME1TAB91 PO; +ONDA-282 PO; -ONDA4TAB6 PO
== END ==
LOC: M SLEEP 20:00
PROVIDERS: ATTEND Physician Assistant
DX: G47.33 Obstructive sleep apnea (adult) (pediatric) (principal)

== ENCOUNTER → 2024-08-21 | Outpatient (CLI) | payer BC ==
[~2024-08-21] MED LIST changes: +TIRZ5PEN3
[2024-08-21 16:05] LABS: BASO % 0.5 % (0.0-1.0); EOS % 0.4 % (0.0-3.0); HEMATOCRIT 43.3 % (42.0-52.0); HEMOGLOBIN 15.2 g/dl (13.5-17.5); MEAN CORPUSCULAR HEMOGLOBIN 32.8 pg (27.0-33.0); MEAN CORPUSCULAR HGB CONC 35.1 g/dl (32.0-36.5); MEAN CORPUSCULAR VOLUME 93.3 fl (80.0-96.0); MONO # 0.6 10^3/uL (0.0-0.8); MONO % 7.8 % (2.0-8.0); PLATELET COUNT, AUTOMATED 263 10^3/uL (150-450); RED BLOOD COUNT 4.64 10^6/uL (4.30-6.10); WHITE BLOOD COUNT 7.7 10^3/uL (4.0-10.0)
[2024-08-21 16:33] LABS: IRON (FE) 71 UG/DL (65-175)
[2024-08-21 16:34] LABS: ALBUMIN 4.1 G/DL (3.2-5.2); ALKALINE PHOSPHATASE 55 U/L (40-129); ALT/SGPT 32 U/L (7.0-40); AST/SGOT 13 U/L (<34); BILIRUBIN,TOTAL 0.6 MG/DL (0.3-1.2); BLOOD UREA NITROGEN 14 MG/DL (9-23); CALCIUM LEVEL 9.6 MG/DL (8.5-10.1); CARBON DIOXIDE LEVEL 27 MMOL/L (20-31); CHLORIDE LEVEL 106 MMOL/L (98-107); CREATININE FOR GFR 0.89 MG/DL (0.70-1.30); GLOMERULAR FILTRATION RATE > 60.0 (>60); GLUCOSE, FASTING 88 MG/DL (60-100); PERCENT SATURATION 24.7 % (19.7-50.0); POTASSIUM SERUM 4.3 MMOL/L (3.5-5.1); SODIUM LEVEL 141 MMOL/L (136-145); TOTAL IRON BINDING CAPACITY 287 UG/DL (250-425); TOTAL PROTEIN 7.3 G/DL (5.7-8.2)
[2024-08-21 16:36] LABS: FERRITIN 71.8 NG/ML (10.5-307.3)
== END ==
LOC: M LAB 15:36
PROVIDERS: ATTEND Nurse Practitioner Women's Health
DX: E83.119 Hemochromatosis, unspecified (principal)

== ENCOUNTER → 2025-05-28 | Outpatient (REF) | payer BC ==
[~2025-05-28] MED LIST changes: +OLME20TA50; -ROSU10TA61 PO; +ROSU10TA90 PO; +TIRZ12.53; -TIRZ5PEN3; +TIRZ5PEN3 SQ
[2025-05-28 11:48] LABS: BASO # 0.0 10^3/uL (0.0-0.2); BASO % 0.4 % (0.0-1.0); EOS # 0.0 10^3/uL (0.0-0.5); EOS % 0.4 % (0.0-3.0); LYMPH # 2.0 10^3/uL (1.5-5.0); LYMPH % 28.9 % (24.0-44.0); MONO # 0.5 10^3/uL (0.0-0.8); MONO % 7.3 % (2.0-8.0); NEUTROPHILS # 4.3 10^3/uL (1.5-8.5); NEUTROPHILS % 62.7 % (36.0-66.0); PLATELET COUNT, AUTOMATED 284 10^3/uL (150-450)
[2025-05-28 12:23] LABS: ALT/SGPT 27 U/L (7.0-40); AST/SGOT 18 U/L (<34); CALCIUM LEVEL 9.4 MG/DL (8.5-10.1); CARBON DIOXIDE LEVEL 28 MMOL/L (20-31); CHLORIDE LEVEL 104 MMOL/L (98-107); CREATININE FOR GFR 0.99 MG/DL (0.70-1.30); GLOMERULAR FILTRATION RATE > 90.0 (>60); POTASSIUM SERUM 4.1 MMOL/L (3.5-5.1); SODIUM LEVEL 141 MMOL/L (136-145)
== END ==
LOC: M LAB REF 10:20
PROVIDERS: ATTEND Internal Medicine Hematology & Oncology
DX: E83.118 Other hemochromatosis (principal)